=== PATIENT | female | born 1965 | race Caucasian/White ===

== ENCOUNTER → 2019-01-30 13:58 | Outpatient (CLI) | payer OTHER, SELFPAY ==
--- NOTE | 2019-01-30 14:11 | DI.CT.S_ITS ---
PROCEDURE: CT ABDOMEN PELVIS W CON INDICATIONS: Unspecified abdominal pain TECHNIQUE: After the administration of oral and intravenous contrast, 5 mm thick sections acquired from the diaphragms to the symphysis. 5 mm thick coronal and sagittal reformats were performed. For radiation dose reduction, the following was used: automated exposure control, adjustment of mA and/or kV according to patient size. COMPARISON: None. FINDINGS: Image quality: Excellent. ABDOMEN: Lung bases: Heart size is normal. Bilateral breast prostheses. No acute consolidation. Scattered subsegmental atelectasis and/or scarring Solid organs: Mild hepatic steatosis. Presumed multiple cysts seen throughout the left and right lobes the liver although some of these are technically too small to characterize definitively Gallbladder contracted otherwise unremarkable. Biliary system is non-dilated. Pancreas enhances normally. Spleen is normal in size and enhancement. No adrenal nodules. Kidneys are normal in size and enhancement, without hydronephrosis. Peritoneum and bowel: Stomach, small bowel, and colon loops are normal in caliber and wall thickness. No free fluid or air. The appendix is within normal limits. Colonic diverticulosis is seen without evidence of acute complication. Nodes and vessels: Bilateral prominent ovarian veins, in addition to asymmetrically enlarged left parametrial varices. No retroperitoneal or mesenteric adenopathy. Aorta and inferior vena cava are normal in caliber. Miscellaneous: No ventral hernias. PELVIS: Genitourinary: Bladder wall thickness is normal. Miscellaneous: No inguinal hernias or adenopathy. Bones: No suspicious bony lesions. No vertebral body compression fractures. IMPRESSION: No acute intra-abdominal process. Prominence of the ovarian veins bilaterally as well as asymmetrically enlarged left parametrial varices. This appearance can be associated with pelvic congestion syndrome. Hepatic cysts. Dictated by: Mega Lott M.D. on 01/30/2019 at 15:19 Approved by: Mega Lott M.D. on 01/30/2019 at 15:36
== END ==
PROVIDERS: Visit Provider Internal Medicine
DX: R10.9 Unspecified abdominal pain (principal); R19.7 Diarrhea, unspecified; K76.0 Fatty (change of) liver, not elsewhere classified; K57.90 Diverticulosis of intestine, part unspecified, without perforation or abscess without bleeding
CPT/HCPCS: 74177

== ENCOUNTER → 2019-11-30 16:50 | Outpatient (CLI) | payer OTHER, SELFPAY ==
[2019-11-30 18:09] LABS: Add Manual Diff / Slide Review NO; Basophils Absolute Auto 100 /uL (0-100); Basophils Percent Auto 0.5 % (0-2); Eosinophils Absolute Auto 300 /uL (0-450); Eosinophils Percent Auto 2.5 % (2-4); Hematocrit 43.4 % (36-46); Hemoglobin 14.3 g/dL (12.0-16.0); Lymphocytes Absolute Auto 3200 /uL (1100-4500); Lymphocytes Percent Auto 23.3 % (25-40); Mean Corpuscular HGB Conc 32.9 % (30-36); Mean Corpuscular Hemoglobin 30.4 PG (26-34); Mean Corpuscular Volume 92.4 fL (80-100); Monocytes Absolute Auto 1200 /uL (0-900); Monocytes Percent Auto 9.1 % (3-14); Neutrophils Absolute Auto 8900 /uL (1500-7000); Neutrophils Percent Auto 64.6 % (50-75); Platelet Count 350 X10^3/uL (150-400); Red Cell Distribution Width 13.8 % (11.6-14.8); White Blood Cell Count 13.8 X10^3/uL (4.5-11.0)
[2019-11-30 18:25] LABS: Alanine Aminotransferase 20 IU/L (<35); Albumin 4.6 g/dL (3.5-5.0); Albumin Globulin Ratio 1.6 (1.0-2.8); Alkaline Phosphatase 63 U/L (38-126); Aspartate Aminotransferase 23 IU/L (14-36); BUN Creatinine Ratio 27.5 (6-22); Bilirubin Total 0.7 mg/dL (0.2-1.3); Blood Urea Nitrogen 19 mg/dL (7-17); Calcium 10.4 mg/dL (8.4-10.2); Carbon Dioxide 29 mmol/L (22-32); Chloride 105 mmol/L (98-107); Estimated Glomerular Filt Rate > 60.0 mL/min (>60); Globulin 2.9 g/dL (1.7-4.1); Glucose 92 mg/dL (70-100); HEMOLYSIS < 15 (0-50); Sodium 139 mmol/L (137-145); Total Protein 7.5 g/dL (6.3-8.2)
[2019-11-30 18:27] LABS: Potassium 5.5 mmol/L (3.4-5.1)
== END ==
PROVIDERS: Referring Provider Internal Medicine Rheumatology; Visit Provider Internal Medicine Rheumatology
DX: Z51.81 Encounter for therapeutic drug level monitoring (principal); Z15.89 Genetic susceptibility to other disease; M76.60 Achilles tendinitis, unspecified leg; Z79.899 Other long term (current) drug therapy
CPT/HCPCS: 36415; 80053; 85025

== ENCOUNTER → 2020-05-21 10:13 | Outpatient (CLI) | payer OTHER, SELFPAY ==
--- NOTE | 2020-05-21 10:26 | DI.MG.S_ITS ---
Patient Name: RONNA SHARMA date: 1965 Sex: F Attending Physician: Long Indications: Date: 05/21/2020 10:23 At the request of: CALI RAMIREZ Procedure: MM screening mammo implant BI BILATERAL DIGITAL SCREENING MAMMOGRAM 3D/2D WITH CAD WITH AUGMENTATION: 05/21/2020 CLINICAL: Patient presents for routine screening. S/P bilateral augmentation. Family history of breast cancer. Comparison is made to exams dated: 08/09/2017 mammogram, 04/16/2016 mammogram, and 11/17/2013 mammogram - [facility]. There are scattered fibroglandular elements in both breasts. Current study was also evaluated with a Computer Aided Detection (CAD) system. Bilateral breast implants are stable and intact. No significant masses, calcifications, or other findings are seen in either breast. There has been no significant interval change. IMPRESSION: NEGATIVE There is no mammographic evidence of malignancy. A 1 year screening mammogram is recommended. This exam was interpreted at Station ID: [id number]. NOTE: For mammograms, a report in lay terms will be sent to the patient. Approximately 15% of breast malignancies will not be visualized mammographically. In the management of a palpable breast mass, a negative mammogram must not discourage biopsy of a clinically suspicious lesion. Electronically Signed By: Alicia naylor/hudson:05/23/2020 09:02:00 letter sent: Normal Exam Continued Report - Page 2 of 2 Patient Name: RONNA SHARMA date: 1965 Sex: F Attending Physician: Long Indications: Date: 05/21/2020 10:23 At the request of: CALI RAMIREZ Procedure: MM screening mammo implant BI ACR BI-RADS Category 1: Negative 3341F
== END ==
PROVIDERS: PCP Student in an Organized Health Care Education/Training Program; Referring Provider Student in an Organized Health Care Education/Training Program; Visit Provider Student in an Organized Health Care Education/Training Program
DX: Z12.31 Encounter for screening mammogram for malignant neoplasm of breast (principal); Z80.3 Family history of malignant neoplasm of breast; Z98.82 Breast implant status
CPT/HCPCS: 77063; 77067

== ENCOUNTER 2020-07-27 01:08 | Emergency (ER) | payer OTHER, SELFPAY ==
[2020-07-27 01:15] VITALS: BP 141/85; PULSE 71; RESP 17; TEMP 36.4; O2SAT 97; BMI 28.5
--- NOTE | 2020-07-27 01:42 | ED.ABDPAIN ---
HPI - Abdominal Pain General Chief Complaint: Back Pain/Injury Stated Complaint: stomach pain/back pain Time Seen by Provider: 07/27/20 01:37 Source: patient Mode of arrival: Ambulatory Limitations: no limitations History of Present Illness HPI narrative: The patient's parents onset of right-sided abdominal pain earlier today, at home. She has been eating and drinking normally. She has had no fever chills. She developed pain in the right abdomen, then radiated across her abdomen to the left abdomen. Pain is in left side, shooting to the left lower quadrant. She developed nausea, she vomited x1. She has no history of GERD, or gallbladder disease. She has 1 prior kidney stone. She denies dysuria or hematuria. She has no fever or chills. She denies chronic medical problems. No one around her has been ill with similar complaints. Related Data Previous Rx's Medication Instructions Recorded hydrocodone-acetaminophen [Luverne] 1 tab PO Q4-6H PRN #14 tab 07/27/20 ondansetron 4 mg PO Q4H PRN #14 tab 07/27/20 tamsulosin [Flomax] 0.4 mg PO DAILY #7 cap 07/27/20 Allergies Allergy/AdvReac Type Severity Reaction Status Date / Time Penicillins Allergy Hives Verified 07/27/20 02:08 albuterol AdvReac Shakiness Verified 07/27/20 02:08 Review of Systems Review of Systems ROS Unobtainable: All systems reviewed & are unremarkable except as noted in HPI and below Constitutional Constitutional: Denies chills, Denies fever(s), Denies headache(s) and Denies weakness ENT Ears, Nose, Mouth, and Throat: Denies headache(s), Denies neck pain and Denies sore throat Cardiovascular Cardiovascular: Denies chest pain, Denies irregular heart rhythm, Denies lightheadedness, Denies palpitations and Denies dyspnea Respiratory Respiratory: Denies cough, Denies dyspnea and Denies wheezing Gastrointestinal Gastrointestinal: Reports as per HPI Genitourinary Genitourinary: Denies dysuria Genitourinary: Denies dysuria Musculoskeletal Musculoskeletal: Reports back pain and Denies neck pain Integumentary/Breasts Skin/Breast: Denies pruritus and Denies erythema Neurologic Neurologic: Denies confusion, Denies headache(s) and Denies weakness Psychiatric Psychiatric: Denies anxiety, Denies confusion, Denies depression and Denies homicidal ideation Endocrine Endocrine: Denies palpitations Allergic/Immunologic Allergic/Immunologic: Denies wheezing Patient History Medical History (Updated 07/27/20 @ 05:55 by Waqar Edwards MD) No chronic diseases present (Acute) Surgical History (Updated 07/27/20 @ 01:45 by Waqar Edwards MD) No significant past surgical history (Acute) Social History Smoking Status: Never smoker Exam Initial Vital Signs Initial Vital Signs: Vital Signs Temperature 97.6 F 07/27/20 01:15 Pulse Rate 71 07/27/20 01:15 Respiratory Rate 17 07/27/20 01:15 Blood Pressure 141/85 H 07/27/20 01:15 Pulse Oximetry 97 07/27/20 01:15 Const General: cooperative and well developed Nutritional Appearance: well nourished HENHI Head: normocephalic and atraumatic Mouth: oral mucosae normal Eyes Conjunctivae: conjunctivae normal Sclera: sclerae normal Neck Neck: No lymphadenopathy and No JVD Resp Effort & Inspection: normal respiratory effort, able to speak in complete sentences, no respiratory distress and no use of accessory muscles Auscultation: clear to auscultation bilaterally, no rales, no rhonchi and no wheezes Cardio Rate: regular rate Rhythm: regular rhythm Heart Sounds: no rubs GI Inspection: non-distended Palpation: soft Auscultation: normal bowel sounds Back/Spine/Pelvis Back: No CVA tenderness Cervical Spine: cervical ROM normal Other: Palpable tenderness in the left flank. Skin General: no rashes or lesions noted, No jaundice and No petechiae Neuro General: patient alert, patient oriented x3, gait normal and no focal motor deficits Speech: speech normal Extrem General: full ROM, no clubbing, cyanosis or edema, no pedal edema and no calf tenderness Course Course Course Narrative: The patient was initially given Toradol due to a presumed kidney stone. Labs were benign, there is no hematuria. CT was obtained due to ongoing symptoms. A 1.2 mm obstructing stone to the left proximal ureter was discovered. In addition to the initial dose of Toradol, she required 2 doses of Dilaudid, she was given Zofran. She was started on Flomax. Her urine has been screen, the stone is not seen. Although, the patient is feeling much better. She would discharged home on Luverne for pain, as well as Flomax. She is instructed to screening urine. To be instructed follow-up with her doctor if not improving. Orders Ordered: Discontinued Medications Hydrocodone Bitart/Acetaminophen (Vicodin 5/325 Prepack) 1 bottle MISC SEEINSTR ONE Stop: 07/27/20 05:47 Last Admin: 07/27/20 06:09 Dose: 1 bottle Documented by: YAS Hydromorphone HCl (Dilaudid) 1 mg IV NOW ONE Stop: 07/27/20 02:29 Last Admin: 07/27/20 02:36 Dose: 1 mg Documented by: LONNY Hydromorphone HCl (Dilaudid) 1 mg IV NOW ONE Stop: 07/27/20 03:47 Last Admin: 07/27/20 03:54 Dose: 1 mg Documented by: YAS Sodium Chloride (Normal Saline 0.9%) 500 mls @ 1,000 mls/hr IV BOLUS ONE Stop: 07/27/20 02:09 Last Infusion: 07/27/20 02:37 Dose: 0 mls/hr Documented by: Admin: 07/27/20 01:56 Dose: 1,000 mls/hr Documented by: YAS Sodium Chloride (Normal Saline 0.9%) 1,000 mls @ 250 mls/hr IV CONT TAI Last Infusion: 07/27/20 06:16 Dose: 0 mls/hr Documented by: Admin: 07/27/20 04:20 Dose: 250 mls/hr Documented by: YAS Ketorolac Tromethamine (Toradol) 30 mg IV NOW ONE Stop: 07/27/20 01:41 Last Admin: 07/27/20 01:55 Dose: 30 mg Documented by: YAS Ondansetron HCl (Zofran) 4 mg IV NOW ONE Stop: 07/27/20 01:42 Last Admin: 07/27/20 01:55 Dose: 4 mg Documented by: YAS Ondansetron HCl (Zofran) 4 mg IV NOW ONE Stop: 07/27/20 02:31 Last Admin: 07/27/20 02:34 Dose: 4 mg Documented by: LONNY Ondansetron HCl (Zofran Odt Prepack) 1 bottle MISC SEEINSTR ONE Stop: 07/27/20 05:47 Last Admin: 07/27/20 06:09 Dose: 1 bottle Documented by: YAS Tamsulosin HCl (Flomax) 0.4 mg PO NOW ONE Stop: 07/27/20 04:13 Last Admin: 07/27/20 04:20 Dose: 0.4 mg Documented by: YAS Vital Signs Vital signs: Vital Signs - 8 hr 07/27/20 01:15 07/27/20 04:25 Temperature 97.6 F Pulse Rate 71 70 Respiratory Rate 17 23 Blood Pressure 141/85 H 136/63 Pulse Oximetry 97 99 MDM - Abdominal Pain Lab Data Result diagrams: 07/27/20 01:35 07/27/20 01:35 Labs: Lab Results 07/27/20 07/27/20 Range/Units 01:35 01:35 WBC 9.7 (4.5-11.0) X10^3/uL RBC 4.80 (4.0-5.2) X10^6/uL Hgb 14.6 (12.0-16.0) g/dL Hct 44.3 (36-46) % MCV 92.4 (80-100) fL MCH 30.5 (26-34) PG MCHC 33.0 (30-36) % RDW 12.7 (11.6-14.8) % Plt Count 315 (150-400) X10^3/uL Neut % (Auto) 67.2 (50-75) % Lymph % (Auto) 22.4 L (25-40) % [place] % (Auto) 7.4 (3-14) % Eos % (Auto) 2.1 (2-4) % Baso % (Auto) 0.9 (0-2) % Neut # (Auto) 6500 (7095-4703) /uL Lymph # (Auto) 2200 (8927-1148) /uL [place] # (Auto) 700 (0-900) /uL Eos # (Auto) 200 (0-450) /uL Baso # (Auto) 100 (0-100) /uL Sodium 139 (137-145) mmol/L Potassium 4.1 (3.4-5.1) mmol/L Chloride 108 H (98-107) mmol/L Carbon Dioxide 23 (22-32) mmol/L BUN 21 H (7-17) mg/dL Creatinine 0.70 (0.52-1.04) mg/dL Estimated GFR > 60.0 (>60) mL/min BUN/Creatinine Ratio 30.0 H (6-22) Glucose 118 H (70-100) mg/dL Calcium 9.9 (8.4-10.2) mg/dL Total Bilirubin 0.6 (0.2-1.3) mg/dL AST 23 (14-36) IU/L ALT 21 (<35) IU/L Alkaline Phosphatase 67 (38-126) U/L Total Protein 7.9 (6.3-8.2) g/dL Albumin 4.6 (3.5-5.0) g/dL Globulin 3.3 (1.7-4.1) g/dL Albumin/Globulin Ratio 1.4 (1.0-2.8) Lipase 84 (23-300) U/L Point of care testing: Urine Dip Bedside Urine Glucose Negative Bedside Urine Bilirubin - Negative Bedside Urine Ketone - Negative Urine Specific [place] 1.025 Bedside Urine Occult Blood +/- Bedside Urine pH 6.0 Bedside Urine Protein - Negative Bedside Urine Urobilinogen - Negative Bedside Urine Nitrite - Negative Bedside Urine Leukocytes - Negative Esterase Imaging Data KUB CT: Radiologist's Impression: 1.2 mm obstructing stone in the proximal left ureter. Nonobstructing bilateral nephrolithiasis. Discharge Plan Departure Patient Disposition: Home Clinical Impression: Kidney stone on left side Discharge Date/Time: 07/27/20 06:20 Instructions: DI for Kidney Stones Activity Restrictions/Additional Instructions: Flomax 1 tablet daily. You may take Tylenol or Advil as needed for pain. Take Luverne every 4 hours for added pain control. Take Zofran every 4 hours as needed for nausea. Be sure you are drinking plenty of water. Screen your urine. If you do not identify the stone within 3-4 days, follow-up with your doctor. Return here for increasing pain, or fever. Prescriptions: New hydrocodone-acetaminophen [Luverne] 5-325 mg tablet 1 tab PO Q4-6H PRN (Reason: pain) Qty: 14 RF: 0 ondansetron 4 mg tablet,disintegrating 4 mg PO Q4H PRN (Reason: nausea and vomiting) Qty: 14 RF: 0 tamsulosin [Flomax] 0.4 mg capsule 0.4 mg PO DAILY Qty: 7 RF: 0 Referrals: Jesica Alves MD [Primary Care Provider] -
[2020-07-27 01:53] LABS: Add Manual Diff / Slide Review NO; Basophils Absolute Auto 100 /uL (0-100); Basophils Percent Auto 0.9 % (0-2); Eosinophils Absolute Auto 200 /uL (0-450); Eosinophils Percent Auto 2.1 % (2-4); Hematocrit 44.3 % (36-46); Hemoglobin 14.6 g/dL (12.0-16.0); Lymphocytes Absolute Auto 2200 /uL (1100-4500); Lymphocytes Percent Auto 22.4 % (25-40); Mean Corpuscular Hemoglobin 30.5 PG (26-34); Mean Corpuscular Volume 92.4 fL (80-100); Monocytes Absolute Auto 700 /uL (0-900); Monocytes Percent Auto 7.4 % (3-14); Neutrophils Absolute Auto 6500 /uL (1500-7000); Neutrophils Percent Auto 67.2 % (50-75); Platelet Count 315 X10^3/uL (150-400); Red Cell Distribution Width 12.7 % (11.6-14.8); White Blood Cell Count 9.7 X10^3/uL (4.5-11.0)
[2020-07-27] MEDS: KETOROLAC 60 MG/2 ML VIAL 30 MG IV (01:55)
[2020-07-27] MEDS: ONDANSETRON 4 MG/2 ML INJ IV ×2 (01:55→02:34)
[2020-07-27] MEDS: SODIUM CHLORIDE 0.9% 500 ML 1000 ML IV (01:56)
[2020-07-27 02:03] LABS: Alanine Aminotransferase 21 IU/L (<35); Albumin 4.6 g/dL (3.5-5.0); Albumin Globulin Ratio 1.4 (1.0-2.8); Alkaline Phosphatase 67 U/L (38-126); Aspartate Aminotransferase 23 IU/L (14-36); Bilirubin Total 0.6 mg/dL (0.2-1.3); Blood Urea Nitrogen 21 mg/dL (7-17); Calcium 9.9 mg/dL (8.4-10.2); Carbon Dioxide 23 mmol/L (22-32); Chloride 108 mmol/L (98-107); Estimated Glomerular Filt Rate > 60.0 mL/min (>60); Globulin 3.3 g/dL (1.7-4.1); Glucose 118 mg/dL (70-100); HEMOLYSIS 27 (0-50); Lipase 84 U/L (23-300); Potassium 4.1 mmol/L (3.4-5.1); Sodium 139 mmol/L (137-145); Total Protein 7.9 g/dL (6.3-8.2)
--- NOTE | 2020-07-27 02:10 | DI.CT.S_ITS ---
PROCEDURE: CT KIDNEY URETER BLADDER (KUB) INDICATIONS: Left flank pain TECHNIQUE: Noncontrast 5 mm thick sections acquired from the diaphragms to the symphysis. 5 mm thick coronal and sagittal reformats were then performed. For radiation dose reduction, the following was used: automated exposure control, adjustment of mA and/or kV according to patient size. COMPARISON: [facility], CT, CT ABDOMEN PELVIS W CON, 01/30/2019, 14:41. FINDINGS: Image quality: Excellent. Lung bases: Mild right middle lobe and lingular atelectasis. Heart size is normal. Note is made of bilateral breast prosthesis. Urinary system: There is a 5 mm nonobstructing stone in the left renal pelvis. A 2 mm stone is seen in the proximal left ureter. There is mild left hydronephrosis and perinephric stranding. A 2 mm calcification is seen in right kidney. No right hydronephrosis. Both kidneys are normal in size. Bladder wall thickness is normal; no calcified bladder stones. Other solid organs: There are multiple hepatic cysts. Liver is normal in size. Gallbladder is normal . Pancreas is normal in contours. Spleen is normal in size. No adrenal nodules. Peritoneum and bowel: Unenhanced bowel loops demonstrate normal wall thickness and caliber. Normal appendix. There are scattered colonic diverticula. No diverticulitis. No free fluid or air. Nodes and vessels: No retroperitoneal or mesenteric adenopathy by size criteria. Aorta and inferior vena cava are normal in caliber. Abdominal wall: No ventral hernias. Pelvis: Uterus and ovaries are unremarkable. No free-fluid in the cul-de-sac. No inguinal hernias or adenopathy. Bones: No suspicious bony lesions. No vertebral body compression fractures. IMPRESSION: 1. A 2 mm obstructive stone in the proximal left ureter causing mild left hydronephrosis. 2. There are nonobstructive renal calculi bilaterally. 3. Diverticulosis without diverticulitis. No significant discrepancy with the night time nanny radiology preliminary report. Dictated by: Edin Craig M.D. on 07/27/2020 at 7:37 Approved by: Edin Craig M.D. on 07/27/2020 at 7:44
[2020-07-27] MEDS: HYDROMORPHONE 1 MG INJ IV (02:36)
[2020-07-27] MEDS: HYDROMORPHONE 0.5 MG INJ 1 MG IV (03:54)
[2020-07-27] MEDS: TAMSULOSIN 0.4 MG CAPSULE PO (04:20)
[2020-07-27] MEDS: SODIUM CHLORIDE 0.9% 1,000 ML 250 ML IV (04:20)
[2020-07-27 04:25] VITALS: BP 136/63; PULSE 70; RESP 23; O2SAT 99
[2020-07-27] MEDS: HYDROCODONE/ACET 5/325 PREPACK 1 BOTTLE MISC (06:09)
[2020-07-27] MEDS: ONDANSETRON 4 MG ODT PREPACK 1 BOTTLE MISC (06:09)
== END 2020-07-27 06:20 | disposition home or self-care (01) ==
PROVIDERS: Emergency Provider Emergency Medicine; PCP Student in an Organized Health Care Education/Training Program
DX: N20.0 Calculus of kidney (principal); R11.2 Nausea with vomiting, unspecified
CPT/HCPCS: 36415; 74176; 80053; 81003; 83690; 85025; 96361; 96374; 96375; 96376; 99284; J1170; J1885; J2405

== ENCOUNTER 2021-02-11 08:14 | Observation (INO) | payer OTHER, SELFPAY ==
[2021-02-11] VITALS (72 sets, daily range): BP systolic 101–147; BP diastolic 49–86; PULSE 60–102; RESP 10–41; TEMP 36.3–36.7; O2SAT 95–99; BMI 28.5
--- NOTE | 2021-02-11 | DI.ECHO.S_ITS ---
[place] [facility]---------+ [facility] +---------+ : : [address] : : : : [id number] : : : : Phone: [phone] Echocardiogram Report + + :Name: RONNA SHARMA Study Date: 02/12/2021 Height: 71 in : :[facility] ReadingLocation: Weight: 205 lb : : Gender: Female BSA: 2.1 m2 : :: 1965 Age: 56 yrs BP: 143/79 mmHg: :Reason For Study: CHEST PAIN : :Ordering Physician: SARA, : :MICHAEL Bishop Performed By: Frances Whitaker : :Referring: MICHAEL RUIZ : + + Interpretation Summary The left ventricle is normal in size and wall thickness. The ejection fraction is estimated to be 55-60%. No significant change in LVEF from the previous study. The right ventricle is normal in size and function. No significant valvular pathology seen. The IVC is of normal diameter and collapses greater than 50% with a sniff. This suggests a low right atrial pressure of 3 mm Hg. Procedure: A two-dimensional transthoracic echocardiogram with color flow and Doppler was performed. The study quality was technically adequate. Comparison is made with the echocardiogram of 09/26/2017. The patient was in sinus rhythm with heart rates between 62-45 bpm during the exam. Left Ventricle: The left ventricle is normal in size and wall thickness. There is no thrombus. The ejection fraction is estimated to be 55-60%. There is a mid septal hypokinesis unchanged from the previous study. Diastolic parameters suggest a relaxation abnormality of the left ventricle, consistent with probable normal filling pressures. Right Ventricle: The right ventricle is normal in size and function. Atria: The left atrium is moderately dilated. The left atrium has mildly increased in size since the prior echo exam. Right atrial size is normal. There is no Doppler evidence for an interatrial shunt. Mitral Valve: The mitral valve leaflets are slightly calcified. There is trace mitral regurgitation. Aortic Valve: The aortic valve is not well visualized. The aortic valve opens well. There is no aortic valve stenosis. No aortic regurgitation is present. Tricuspid Valve: The tricuspid valve is not well visualized, but is grossly normal. There is trace tricuspid regurgitation. Pulmonary artery pressures cannot be estimated because of the lack of a measurable TR jet velocity. Pulmonic Valve: The pulmonic valve is not well seen, but is grossly normal. There is no pulmonic valvular regurgitation. Great Vessels: The aortic root is normal size. The ascending aorta could not be visualized. The IVC is of normal diameter and collapses greater than 50% with a sniff. This suggests a low right atrial pressure of 3 mm Hg. Pericardium/ Pleura There is no pericardial effusion. There is no pleural effusion. MMode/2D Measurements & Calculations LVIDd: 5.7 cm LVOT diam: 2.0 cm LVIDs: 4.1 cm Ao root diam: 2.6 cm FS: 27.1 % Ao Arch Diam (Prox Trans): 2.9 cm EPSS: 0.84 cm IVSd: 0.56 cm LVPWd: 0.83 cm LV ware. diameter/BSA (cm/m^2): 2.7 LV sys. diameter/BSA (cm/m^2): 1.9 LA A2 area: 27.8 cm2 RA long axis: 5.3 cm LA A4 area: 21.8 cm2 RA area: 19.3 cm2 LA length (vol): 5.7 cm RA vol: 60.0 ml LA vol: 90.1 ml RA : 28.2 ml/m2 LA vol index: 42.3 ml/m2 IVC diam: 1.5 cm RVD1 (basal): 2.9 cm TAPSE: 2.9 cm Doppler Measurements & Calculations Ao V2 max: 182.5 cm/sec LVOT Max Kody: 91.1 cm/sec Ao V2 mean: 120.8 cm/sec LV V1 max P.3 mmHg Ao max P.3 mmHg LV V1 VTI: 20.4 cm Ao mean P.9 mmHg SAIRA(I,D): 1.6 cm2 Ao V2 VTI: 40.5 cm SAIRA(V,D): 1.6 cm2 sev ratio: 0.51 SAIRA indexed to BSA (cm^2/m^2): 0.74 MV E max kody: 74.2 cm/sec PA pr(Accel): 15.6 mmHg MV A max kody: 78.7 cm/sec MV E/A: 0.94 Med Peak E' Kody: 8.8 cm/sec E/E' med: 8.4 Lat Peak E' Kody: 13.4 cm/sec E/E' lat: 5.5 E/e' average: 7.0 MV dec time: 0.23 sec SV(LVOT): 64.2 ml Reading Physician:02:09 PM
--- NOTE | 2021-02-11 08:19 | ED_ITS ---
HPI - Chest Pain General Chief Complaint: Chest Pain Stated Complaint: chest pain Time Seen by Provider: 02/11/21 08:18 Source: patient and family () Mode of arrival: Ambulatory Limitations: no limitations History of Present Illness HPI narrative: This is a 56-year-old female who comes emergency department with complaint of chest/pressure that started yesterday about 10:00 a.m. and has been constant. Patient states that during evening sort of started to radiate to the across her chest initially been just on the left sort of substernal and also being radiate to ear. She has also noted overnight and into this morning that both upper extremities feel tingly she felt some blurriness in her left eye. Quinn jay denies any radiation to her back. She denies any radiation to her abdomen. She denies any nausea or vomiting. She denies any new weakness or difficulty with use of her extremities. Patient denies any pain down her upper extremities. Patient denies fevers, no chills although she felt cold overnight. She states she felt a little bit short of breath going up stairs which she states is atypical but has not appreciated any shortness of breath otherwise. Denies any nausea, no vomiting. No diaphoresis. She denies any urinary symptoms. No black or bloody stools or diarrhea constipation. She is not appreciate any swelling her extremities. Patient felt lightheaded yesterday but denies any syncope. She states she had a heart attack 5 years ago after having persistent fast heartbeat and states she had a cardiac catheterization at that time which was negative which was likely demand ischemia. She did not have any stents placed. Patient states she did take flecainide yesterday. She states she was prescribed this after that event that she had atrial fibrillation. She states she takes it once or twice monthly. She states that she just felt ill but did not appreciate a fast heartbeat when she took it and did not have any improvement. Patient states she takes cardia and Celebrex and no other regular medications. She does not take aspirin or any other anticoagulation. Patient has a prior history of cardiac catheterization without stents, bilateral breast implants, and tonsillectomy. She is allergic to penicillin. No tobacco, she will his alcohol in the weekends and has not had any so far. No illicit. She states family history her dad had some sort of cardiac issues but she is unsure what they are no longer in touch. She denies any other cardiac, p ulmonary or bowel like history in her family. Dr. Cheng is her security nurse. Related Data Home Medications Medication Instructions Recorded Confirmed acyclovir 400 mg PO BID 02/11/21 02/11/21 celecoxib 200 mg PO BID PRN 02/11/21 02/11/21 diltiazem HCl [Cartia XT] 120 mg PO BID 02/11/21 02/11/21 flecainide 50 mg PO DAILY PRN 02/11/21 02/11/21 Allergies Allergy/AdvReac Type Severity Reaction Status Date / Time Penicillins Allergy Hives Verified 07/27/20 02:08 albuterol AdvReac Shakiness Verified 07/27/20 02:08 Review of Systems Review of Systems ROS Unobtainable: All systems reviewed & are unremarkable except as noted in HPI and below Patient History Medical History (Updated 02/11/21 @ 08:40 by Amy Blake DO) Atrial fibrillation No chronic diseases present Surgical History (Updated 02/11/21 @ 08:38 by Amy Blake DO) History of History of cardiac catheterization History of tonsillectomy Hx of breast implants, bilateral No significant past surgical history Social History Smoking Status: Never smoker Smoking Status: Never smoker alcohol intake frequency: a few times a week Substance Use Type: does not use Exam Narrative Exam Narrative: GENERAL: Alert and oriented x three, well-nourished female in mild distress. HEENT: Head normocephalic, atraumatic, EOMI, pupils reactive, face symmetric, moist mucous membranes, no facial droop. NECK: Supple, full range of motion CARDIOVASCULAR: Regular rate and rhythm without murmurs, rubs or gallops. No JVD. Patient chest pain is reproducible on exam. RESPIRATORY: Breath sounds equal bilaterally, no wheezes rales or rhonchi. ABDOMEN: Soft, nontender. Normoactive bowel sounds all 4 quadrants. No guarding or rebound, rigidity, no mass, no bruit or abdominal pulsatile mass. : No CVA tenderness EXTREMITIES: Normal range of motion, no clubbing or edema. 5/5 muscle strength and equal pipelaying fitter bilaterally. Normal sensation to light touch. Neurovascularly intact. 2+ radial pulses bilaterally. NEUROLOGICAL: Cranial nerves II through XII grossly intact. Moving all extremities SKIN: Warm, dry, no petechiae, no rashes or lesions. Initial Vital Signs Initial Vital Signs: Vital Signs Temperature 97.3 F L 02/11/21 08:23 Pulse Rate 68 02/11/21 08:23 Respiratory Rate 20 02/11/21 08:23 Blood Pressure 129/72 02/11/21 08:23 Pulse Oximetry 97 02/11/21 08:23 Scores HEART Score Heart Score history: Moderately Suspicious Heart Score EKG: Non-Specific repolarization disturbance Heart Score Age: 45-64 years old Heart Score risk factors: 1-2 risk factors Heart Score troponin: < or = to normal limit Heart Score Total: 4 Course Orders Ordered: ED Orders 02/11/21 09:20 COVID19 - ADMIT (WASTE WATER OR WATER [employer]ANT OPERATOR swab/PCR) Stat 02/11/21 09:23 Complete Blood Count AUTO DIFF Stat Comprehensive Metabolic Panel Stat D Dimer Stat Lipase Stat NT-proBNP (BNP-Adult 18+) Stat Partial Thromboplastin Time Stat Prothrombin Time INR Stat Troponin & CK Cardiac Panel Stat 02/11/21 10:10 CT angio head and neck Stat 02/11/21 11:58 Trop I [Troponin I] Stat 02/11/21 12:09 EKG-12 Lead Stat Acyclovir (Acyclovir 400 Mg Tablet) 400 mg PO BID [facility] Aspirin (Aspirin Ec 81 Mg Tablet) 81 mg PO DAILY [facility] Diltiazem HCl (Diltiazem Cd 120 Mg Cap) 120 mg PO BID [facility] Enoxaparin Sodium (Enoxaparin 40 Mg/0.4 Ml Syringe) 40 mg SUBCUT DAILY [facility] Flecainide Acetate (Flecainide 100 Mg Tablet) 50 mg PO DAILY PRN PRN Reason: afib rvr Sodium Chloride (Normal Saline 0.9%) 1,000 mls @ 150 mls/hr IV CONT TAI Last Infusion: 02/11/21 16:39 Dose: 0 mls/hr Documented by: Infusion: 02/11/21 13:58 Dose: 0 mls/hr Documented by: Admin: 02/11/21 09:09 Dose: 150 mls/hr Documented by: DONAL Morphine Sulfate (Morphine 2 Mg/Ml Inj) 2 mg IV Q5MIN PRN PRN Reason: Chest Pain Naloxone HCl (Naloxone 0.4 Mg/Ml Vial) 0.2 mg IV Q2MIN PRN PRN Reason: Opiate Reversal Nitroglycerin (Nitroglycerin 0.4 Mg Sl Tab) 0.4 mg SL [id number] PRN PRN Reason: chest pain Last Admin: 02/11/21 09:10 Dose: 0.4 mg Documented by: Admin: 02/11/21 09:05 Dose: 0.4 mg Documented by: DONAL Nitroglycerin (Nitroglycerin 0.4 Mg Sl Tab) 0.4 mg SL [id number] PRN PRN Reason: Chest Pain Ondansetron HCl (Ondansetron 4 Mg Odt) 4 mg PO Q8HR PRN PRN Reason: Nausea And Vomiting Discontinued Medications Aspirin (Aspirin 81 Mg Chew Tab) 324 mg PO NOW ONE Stop: 02/11/21 08:32 Last Admin: 02/11/21 09:04 Dose: 324 mg Documented by: DONAL Nitroglycerin (Nitroglycerin Oint 1 Inch/Gm Oint...G.) 1 inch TOP NOW ONE Stop: 02/11/21 09:36 Last Admin: 02/11/21 09:38 Dose: 1 inch Documented by: DONAL Nitroglycerin (Nitroglycerin Oint 1 Inch/Gm Oint...G.) 1.5 inch TOP NOW ONE Stop: 02/11/21 17:01 Last Admin: 02/11/21 17:21 Dose: 1.5 inch Documented by: [facility] Reevaluation(s) Reevaluation #1: Patient had improvement with nitro sublingual x2 which then returned. Nitropaste was placed with improvement. Patient was awaiting CT angiography secondary to numbness in her upper extremities as well as some tingling in her face and complaint of blurred vision in eye. Time: 10:12 Consultations Consultation #1: Spoke with Dr. Estrada. Recommend serial enzymes, echo tomorrow and stress testing on Saturday. Time: 14:33 Consultation #2: Dr. Morel, accepts for observation. Dr. Morel saw and dominique luated patient in department. Patient does have somewhat atypical symptoms reviewed Dr. Estrada's recommendations. Time: 14:39 Vital Signs Vital signs: Vital Signs - 8 hr 02/11/21 10:00 02/11/21 10:30 02/11/21 11:00 Pulse Rate 60 61 63 Respiratory Rate 15 26 H 23 Blood Pressure Pulse Oximetry 96 97 97 02/11/21 11:30 02/11/21 11:48 02/11/21 11:50 Pulse Rate 68 62 63 Respiratory Rate 22 22 22 Blood Pressure 131/71 121/71 Pulse Oximetry 97 97 98 02/11/21 11:55 02/11/21 12:00 02/11/21 12:05 Pulse Rate 64 66 61 Respiratory Rate 22 21 21 Blood Pressure 112/69 116/73 113/72 Pulse Oximetry 98 96 96 02/11/21 12:10 02/11/21 12:15 02/11/21 12:31 Pulse Rate 62 64 66 Respiratory Rate 37 H 27 H 22 Blood Pressure 114/69 109/66 Pulse Oximetry 97 97 98 02/11/21 12:33 02/11/21 12:35 02/11/21 12:41 Pulse Rate 60 62 61 Respiratory Rate 12 34 H 18 Blood Pressure 121/66 114/67 147/65 H Pulse Oximetry 02/11/21 12:46 02/11/21 12:50 02/11/21 12:56 Pulse Rate 65 62 63 Respiratory Rate 26 H 17 17 Blood Pressure 108/63 107/76 112/64 Pulse Oximetry 02/11/21 13:00 02/11/21 13:05 02/11/21 13:10 Pulse Rate 62 69 62 Respiratory Rate 21 21 14 Blood Pressure 113/66 110/64 114/62 Pulse Oximetry 02/11/21 13:15 02/11/21 13:21 02/11/21 13:25 Pulse Rate 62 65 66 Respiratory Rate 10 L 22 22 Blood Pressure 113/63 101/49 L 115/56 L Pulse Oximetry 02/11/21 13:30 02/11/21 13:35 02/11/21 13:40 Pulse Rate 63 63 64 Respiratory Rate 22 23 20 Blood Pressure 117/79 113/74 108/71 Pulse Oximetry 02/11/21 13:45 02/11/21 13:50 02/11/21 13:55 Pulse Rate 62 61 64 Respiratory Rate 22 25 H 17 Blood Pressure 108/70 127/69 114/68 Pulse Oximetry 02/11/21 14:00 02/11/21 14:05 02/11/21 14:10 Pulse Rate 62 63 102 H Respiratory Rate 24 27 H 37 H Blood Pressure 123/75 112/60 106/61 Pulse Oximetry 02/11/21 14:15 02/11/21 14:20 02/11/21 14:25 Pulse Rate 62 69 66 Respiratory Rate 23 36 H 31 H Blood Pressure 110/68 114/75 119/67 Pulse Oximetry 02/11/21 14:30 02/11/21 14:35 02/11/21 14:40 Pulse Rate 62 64 63 Respiratory Rate 21 31 H 19 Blood Pressure 116/67 116/69 121/70 Pulse Oximetry 02/11/21 14:45 02/11/21 14:50 02/11/21 14:55 Pulse Rate 68 72 66 Respiratory Rate 31 H 38 H 21 Blood Pressure 128/75 130/73 119/63 Pulse Oximetry 02/11/21 15:00 02/11/21 15:05 Pulse Rate 63 66 Respiratory Rate 18 39 H Blood Pressure 117/65 126/74 Pulse Oximetry MDM - Chest Pain Lab Data Attestation: I reviewed the patient's lab results. Result diagrams: 02/11/21 09:23 02/11/21 09:23 Labs: Lab Results 02/11/21 02/11/21 02/11/21 Range/Units 09:20 09:23 09:23 WBC 5.6 (4.5-11.0) X10^3/uL RBC 4.75 (4.0-5.2) X10^6/uL Hgb 14.3 (12.0-16.0) g/dL Hct 43.8 (36-46) % MCV 92.2 (80-100) fL MCH 30.0 (26-34) PG MCHC 32.6 (30-36) % RDW 13.4 (11.6-14.8) % Plt Count 283 (150-400) X10^3/uL Neut % (Auto) 50.1 (50-75) % Lymph % (Auto) 37.1 (25-40) % [place] % (Auto) 8.7 (3-14) % Eos % (Auto) 3.1 (2-4) % Baso % (Auto) 1.0 (0-2) % Neut # (Auto) 2800 (8606-0059) /uL Lymph # (Auto) 2100 (3211-8202) /uL [place] # (Auto) 500 (0-900) /uL Eos # (Auto) 200 (0-450) /uL Baso # (Auto) 100 (0-100) /uL PT 11.6 (10.1-12.7) SECONDS INR 1.0 (0.9-1.3) APTT 32 (26.4-36.2) SECONDS D-Dimer < 200 (<230) ng/mL Sodium (137-145) mmol/L Potassium (3.4-5.1) mmol/L Chloride (98-107) mmol/L Carbon Dioxide (22-32) mmol/L BUN (7-17) mg/dL Creatinine (0.52-1.04) mg/dL Estimated GFR (>60) mL/min BUN/Creatinine Ratio (6-22) Glucose (70-100) mg/dL Calcium (8.4-10.2) mg/dL Total Bilirubin (0.2-1.3) mg/dL AST (14-36) IU/L ALT (<35) IU/L Alkaline Phosphatase (38-126) U/L Total Creatine Kinase (30-135) U/L CK-MB (CK-2) CK-MB (CK-2) Rel Index Troponin I (0.01-0.034) ng/mL NT-Pro-B Natriuret Pep (<125) pg/mL Total Protein (6.3-8.2) g/dL Albumin (3.5-5.0) g/dL Globulin (1.7-4.1) g/dL Albumin/Globulin Ratio (1.0-2.8) Lipase (23-300) U/L SARS-CoV-2 (PCR) Negative (Negative) 02/11/21 02/11/21 Range/Units 09:23 11:58 WBC (4.5-11.0) X10^3/uL RBC (4.0-5.2) X10^6/uL Hgb (12.0-16.0) g/dL Hct (36-46) % MCV (80-100) fL MCH (26-34) PG MCHC (30-36) % RDW (11.6-14.8) % Plt Count (150-400) X10^3/uL Neut % (Auto) (50-75) % Lymph % (Auto) (25-40) % [place] % (Auto) (3-14) % Eos % (Auto) (2-4) % Baso % (Auto) (0-2) % Neut # (Auto) (4715-6044) /uL Lymph # (Auto) (7213-5625) /uL [place] # (Auto) (0-900) /uL Eos # (Auto) (0-450) /uL Baso # (Auto) (0-100) /uL PT (10.1-12.7) SECONDS INR (0.9-1.3) APTT (26.4-36.2) SECONDS D-Dimer (<230) ng/mL Sodium 140 (137-145) mmol/L Potassium 4.5 (3.4-5.1) mmol/L Chloride 108 H (98-107) mmol/L Carbon Dioxide 25 (22-32) mmol/L BUN 15 (7-17) mg/dL Creatinine 0.60 (0.52-1.04) mg/dL Estimated GFR > 60.0 (>60) mL/min BUN/Creatinine Ratio 25.0 H (6-22) Glucose 110 H (70-100) mg/dL Calcium 9.3 (8.4-10.2) mg/dL Total Bilirubin 0.5 (0.2-1.3) mg/dL AST 26 (14-36) IU/L ALT 22 (<35) IU/L Alkaline Phosphatase 70 (38-126) U/L Total Creatine Kinase 88 (30-135) U/L CK-MB (CK-2) TNP CK-MB (CK-2) Rel Index TNP Troponin I < 0.012 < 0.012 (0.01-0.034) ng/mL NT-Pro-B Natriuret Pep 42 (<125) pg/mL Total Protein 7.0 (6.3-8.2) g/dL Albumin 4.2 (3.5-5.0) g/dL Globulin 2.8 (1.7-4.1) g/dL Albumin/Globulin Ratio 1.5 (1.0-2.8) Lipase 66 (23-300) U/L SARS-CoV-2 (PCR) (Negative) Imaging Data Chest x-ray: Radiologist's Impression: [address] [id number] ReportSigned Patient: Mary Jane Zazueta RMR#: [id number]: 1965Acct:[id number]/Sex: 56 / FDate of Service: 02/11/21Loc: EDAccession Number: [id number] Procedure: XR chest 1V Ordering Provider: Amy Blaek D.O. PROCEDURE: XR CHEST 1V INDICATIONS: chest pain, tingling extremities TECHNIQUE: One view of the chest was acquired. COMPARISON: [facility], CT, CT ANGIO CHEST PE, 09/27/2017, 11:43. [facility], CR, XR CHEST 2 VIEWS, 11/16/2018, 17:30. FINDINGS: Surgical changes and devices: None. Lungs and pleura: Lungs are clear. No pleural effusions or pneumothorax. Mediastinum: The cardiac contours are within normal limits. The aorta demonstrates calcification and tortuosity, which is similar to the prior. Bones and chest wall: No suspicious bony lesions. Degenerative changes are seen, particularly involving the left acromioclavicular joint. Overlying soft tissues appear unremarkable. IMPRESSION: Portable chest study within normal limits for age. Dictated by: Michael Hinson M.D. on 02/11/2021 at 7:58 Approved by: Michael Hinson M.D. on 02/11/2021 at 8:00 CT scan - chest: Radiologist's Impression: [address] [id number] Scan ReportSigned Patient: Mary Jane Zazueta RMR#: [id number]: 1965Acct:[id number]/Sex: 56 / FDate of Service: 02/11/21Loc: EDAccession Number: [id number] Procedure: CT angio head and neck Ordering Provider: Amy Blake D.O. PROCEDURE: CT ANGIO HEAD AND NECK INDICATIONS: chest pain with radiation to neck TECHNIQUE: Pre-contrast 4.5 mm thick sections acquired from the foramen magnum to the vertex. After the administration of intravenous contrast, 1 mm thick sections acquired from the aortic arch through the [place] of Curz. Post-contrast 4.5 mm thick sections then re- acquired from the foramen magnum to the vertex. 3-dimensional avkklmv-obgrpwndj-qwlcmfxyer (MIP) and/or volume rendering reformats were acquired of the central intracranial vasculature and neck separately. COMPARISON: None. FINDINGS: Image quality: Excellent. BRAIN: CSF spaces: Ventricles are normal in size and shape. Basal cisterns are patent . No extra-axial fluid collections. Brain: No midline shift. No intracranial bleeds or masses. Murdock-white matter interface appears intact. Skull and face: Calvarium and facial bones appear intact, without suspicious lesions. Orbits appear normal. Sinuses: Sinuses and mastoids are clear. HEAD CT ANGIOGRAPHY: Anterior circulation: Intracranial internal carotid arteries are normal in size and flow. The flow within the paired anterior cerebral arteries is normal and symmetric. The flow within the middle cerebral arteries is normal and symmetric. The anterior communicating artery is seen. No aneurysms are seen. Posterior circulation: Visualized portions of the vertebral arteries demonstrate normal caliber, and join to form a normal appearing basilar artery. Flow within the posterior cerebral arteries is normal and symmetric. No aneurysms are seen. NECK CT ANGIOGRAPHY: Carotid system: The great vessels demonstrate a conventional anatomy as they arise from the aortic arch. The visualized aortic arch is within normal limits, without findings of dissection or aneurysm. The origins of the common carotid arteries appear patent. The common carotid arteries demonstrate normal caliber and courses. The bifurcation regions are both widely patent. The internal carotid arteries demonstrate normal calibers and courses. Posterior circulation: The origins of the vertebral arteries both appear widely patent. Incidental note is made of a direct origin of the left vertebral artery from the aortic arch. The more superior extracranial portions of both vertebral arteries also demonstrate normal courses and calibers. They join to form a normal appearing basilar artery. Soft tissues: Visualized neck soft tissues demonstrate no suspicious abnormali ties. There is partial visualization of a right breast implant. Bones: No suspicious bony lesions. Visualized cervical spine appears normally aligned. Cervical spine degenerative changes are seen throughout, which are overall worst at C5-C6. IMPRESSION: No acute intracranial process is seen. No significant intracranial arterial abnormality is seen. Within the arteries of the neck, no hemodynamically significant stenosis can be seen. No findings of dissection can be seen. The visualized aortic arch is within normal limits. Incidental note is made of: Direct origin of the left vertebral artery from the aortic arch. Any quantitative measurements of stenosis were performed using NASCET criteria. Dictated by: Michael Hinson M.D. on 02/11/2021 at 11:55 Approved by: Michael Hinson M.D. on 02/11/2021 at 11:58 ECG Data Attestation: I personally reviewed and interpreted this ECG as follows: Prior ECG tracings: not available for review Interpretation: Sinus rhythm rate of 67 NE 172 QRS of 98 QTC 443. For patient is Q-wave in lead 3. No ST elevation. Nonspecific change. No priors for comparison. EKG 2. Shows sinus rhythm rate of 67 NE 172 QRS of [address] No acute ST elevation appreciated. Nonspecific change with MDM Narrative Medical decision making narrative: This is a 56-year-old comes emergency department with somewhat atypical chest pain and a history of atrial fibrillation with intermittent flecainide use. Some of her story is classical with substernal pain a little bit more on the left radiates to the neck and ear as was shoulders. She states she also developed some tingling in both upper extremities as well as her face and cheek. Patient did not have any neurologic changes appreciated on exam. Her EKG does show some Q-waves but no acute ischemic or dynamic changes. Patient's troponin was negative at almost 24 hours out but was repeated with repeat EKG with no acute changes as she had symptomatic symptoms. She did have improvement of her symptoms with nitro sublingual which resolved after 2 and then redeveloped chest pain and was given nitropaste. Patient's chest pain was also reproducible on physical exam spe cific to the left sternal border. Patient had CT angiography ordered with her atypical symptoms to rule out dissection or aneurysm which was negative. Patient's case was discussed with cardiology who recommends observation serial troponins, echo tomorrow and stress testing on Saturday as we do not have it available here. Discussed with patient's primary care service who kindly accepts. Discharge Plan Departure Patient Disposition: Admitted as Observation Clinical Impression: Atypical chest pain Admit Date/Time: 02/11/21 15:09 Admit Provider: Robert Morel
--- NOTE | 2021-02-11 08:31 | DI.RAD.S_ITS ---
PROCEDURE: XR CHEST 1V INDICATIONS: chest pain, tingling extremities TECHNIQUE: One view of the chest was acquired. COMPARISON: [facility], CT, CT ANGIO CHEST PE, 09/27/2017, 11:43. [facility], CR, XR CHEST 2 VIEWS, 11/16/2018, 17:30. FINDINGS: Surgical changes and devices: None. Lungs and pleura: Lungs are clear. No pleural effusions or pneumothorax. Mediastinum: The cardiac contours are within normal limits. The aorta demonstrates calcification and tortuosity, which is similar to the prior. Bones and chest wall: No suspicious bony lesions. Degenerative changes are seen, particularly involving the left acromioclavicular joint. Overlying soft tissues appear unremarkable. IMPRESSION: Portable chest study within normal limits for age. Dictated by: Michael Hinson M.D. on 02/11/2021 at 7:58 Approved by: Michael Hinson M.D. on 02/11/2021 at 8:00
[2021-02-11] MEDS: ASPIRIN 81 MG CHEW TAB 324 MG PO (09:04)
[2021-02-11] MEDS: NITROGLYCERIN 0.4 MG SL TAB SL ×2 (09:05→09:10)
[2021-02-11] MEDS: SODIUM CHLORIDE 0.9% 1,000 ML 150 ML IV (09:09)
--- NOTE | 2021-02-11 09:11 | PC.NURSE ---
after nitro SL x 1 patient reports reduction of chest pressure from 4/10 to a 2/10. Provider aware, second nitro given.
--- NOTE | 2021-02-11 09:15 | PC.NURSE ---
second nitro resolved chest pain/pressure. Provider notified.
[2021-02-11 09:32] LABS: Add Manual Diff / Slide Review NO; Basophils Absolute Auto 100 /uL (0-100); Eosinophils Absolute Auto 200 /uL (0-450); Eosinophils Percent Auto 3.1 % (2-4); Hematocrit 43.8 % (36-46); Hemoglobin 14.3 g/dL (12.0-16.0); Lymphocytes Absolute Auto 2100 /uL (1100-4500); Lymphocytes Percent Auto 37.1 % (25-40); Mean Corpuscular HGB Conc 32.6 % (30-36); Mean Corpuscular Volume 92.2 fL (80-100); Monocytes Absolute Auto 500 /uL (0-900); Monocytes Percent Auto 8.7 % (3-14); Neutrophils Absolute Auto 2800 /uL (1500-7000); Neutrophils Percent Auto 50.1 % (50-75); Platelet Count 283 X10^3/uL (150-400); Red Blood Cell Count 4.75 X10^6/uL (4.0-5.2); Red Cell Distribution Width 13.4 % (11.6-14.8); White Blood Cell Count 5.6 X10^3/uL (4.5-11.0)
[2021-02-11 09:38] LABS: Prothrombin Time 11.6 SECONDS (10.1-12.7)
[2021-02-11] MEDS: NITROGLYCERIN OINT 1 INCH/GM OINT...G. TOP (09:38)
[2021-02-11 09:41] LABS: PTT Partial Thromboplastin Tim 32 SECONDS (26.4-36.2)
[2021-02-11 09:42] LABS: Alanine Aminotransferase 22 IU/L (<35); Albumin 4.2 g/dL (3.5-5.0); Albumin Globulin Ratio 1.5 (1.0-2.8); Alkaline Phosphatase 70 U/L (38-126); Aspartate Aminotransferase 26 IU/L (14-36); Bilirubin Total 0.5 mg/dL (0.2-1.3); Blood Urea Nitrogen 15 mg/dL (7-17); Calcium 9.3 mg/dL (8.4-10.2); Carbon Dioxide 25 mmol/L (22-32); Chloride 108 mmol/L (98-107); Creatine Kinase 88 U/L (30-135); Estimated Glomerular Filt Rate > 60.0 mL/min (>60); Globulin 2.8 g/dL (1.7-4.1); Glucose 110 mg/dL (70-100); HEMOLYSIS < 15 (0-50); Lipase 66 U/L (23-300); Potassium 4.5 mmol/L (3.4-5.1); Sodium 140 mmol/L (137-145)
[2021-02-11 09:45] LABS: D Dimer < 200 ng/mL (<230)
[2021-02-11 09:54] LABS: NT-proBNP (BNP-Adult 18+) 42 pg/mL (<125); Troponin I < 0.012 ng/mL (0.01-0.034)
--- NOTE | 2021-02-11 10:10 | DI.CT.S_ITS ---
PROCEDURE: CT ANGIO HEAD AND NECK INDICATIONS: chest pain with radiation to neck TECHNIQUE: Pre-contrast 4.5 mm thick sections acquired from the foramen magnum to the vertex. After the administration of intravenous contrast, 1 mm thick sections acquired from the aortic arch through the [place]. Post-contrast 4.5 mm thick sections then re-acquired from the foramen magnum to the vertex. 3-dimensional cfzjtez-rwllwntyw-zktoyumjke (MIP) and/or volume rendering reformats were acquired of the central intracranial vasculature and neck separately. COMPARISON: None. FINDINGS: Image quality: Excellent. BRAIN: CSF spaces: Ventricles are normal in size and shape. Basal cisterns are patent. No extra-axial fluid collections. Brain: No midline shift. No intracranial bleeds or masses. [place]-white matter interface appears intact. Skull and face: Calvarium and facial bones appear intact, without suspicious lesions. Orbits appear normal. Sinuses: Sinuses and mastoids are clear. HEAD CT ANGIOGRAPHY: Anterior circulation: Intracranial internal carotid arteries are normal in size and flow. The flow within the paired anterior cerebral arteries is normal and symmetric. The flow within the middle cerebral arteries is normal and symmetric. The anterior communicating artery is seen. No aneurysms are seen. Posterior circulation: Visualized portions of the vertebral arteries demonstrate normal caliber, and join to form a normal appearing basilar artery. Flow within the posterior cerebral arteries is normal and symmetric. No aneurysms are seen. NECK CT ANGIOGRAPHY: Carotid system: The great vessels demonstrate a conventional anatomy as they arise from the aortic arch. The visualized aortic arch is within normal limits, without findings of dissection or aneurysm. The origins of the common carotid arteries appear patent. The common carotid arteries demonstrate normal caliber and courses. The bifurcation regions are both widely patent. The internal carotid arteries demonstrate normal calibers and courses. Posterior circulation: The origins of the vertebral arteries both appear widely patent. Incidental note is made of a direct origin of the left vertebral artery from the aortic arch. The more superior extracranial portions of both vertebral arteries also demonstrate normal courses and calibers. They join to form a normal appearing basilar artery. Soft tissues: Visualized neck soft tissues demonstrate no suspicious abnormalities. There is partial visualization of a right breast implant. Bones: No suspicious bony lesions. Visualized cervical spine appears normally aligned. Cervical spine degenerative changes are seen throughout, which are overall worst at C5-C6. IMPRESSION: No acute intracranial process is seen. No significant intracranial arterial abnormality is seen. Within the arteries of the neck, no hemodynamically significant stenosis can be seen. No findings of dissection can be seen. The visualized aortic arch is within normal limits. Incidental note is made of: Direct origin of the left vertebral artery from the aortic arch. Any quantitative measurements of stenosis were performed using NASCET criteria. Dictated by: Michael Hinson M.D. on 02/11/2021 at 11:55 Approved by: Michael Hinson M.D. on 02/11/2021 at 11:58
[2021-02-11 10:15] LABS: COVID19 - ADMIT (NP swab/PCR) Negative (Negative)
[2021-02-11 12:33] LABS: Troponin I < 0.012 ng/mL (0.01-0.034)
--- NOTE | 2021-02-11 15:29 | PM.HP.1 ---
History of Present Illness History of Present Illness Date Patient Seen: 02/11/21 Time Patient Seen: 15:10 Date of Onset of Symptoms: 02/10/21 Chief complaint: chest pain Narrative: chief complaint: chest pain Pt presents via ED for sudden onset crushing sternal chest pain yesterday radiating up to her L ear. She reports yesterday was pretty regular except for she did notice she was peeing a lot more than usual and she felt lightheaded at her passport photo but did not fall. Chest pain occurred yesterday afternoon while she was just sitting around at home. She is a cardiology pt of Dr Cheng 2\2 hx of rate-controlled afib not on anticoagulation. She takes a daily diltiazem and has a prn flecainide which she uses perhaps monthly but which had no effect on her chest pain yesterday. Initial workup here including troponin and CTA unrevealing however pt's chest pain responds beautifully to nitro tabs and paste. Pt reports she is not really under any huge stress lately, she got last week in a small ceremony, Cezar ([phone]) at bedside. Appetite is good, slept ok last night, peeing normal amount today she thinks. Sees Dr. Cheng who per ED recommends serial trops and echo then stress test as outpt if all wnl. Apart from HSV and afib she is in generally good health, reports menopause for the last five years. Patient History Medical History (Updated 02/11/21 @ 08:40 by Amy Blake DO) Atrial fibrillation No chronic diseases present Surgical History (Updated 02/11/21 @ 08:38 by Amy Blake DO) History of History of cardiac catheterization History of tonsillectomy Hx of breast implants, bilateral No significant past surgical history Family & Social History Safety & Behavioral: Feels Safe in Current Yes Environment Been Physically Hurt or No Threatened By a Person Tobacco & Substance use: Smoking Status Never smoker alcohol intake frequency a few times a week Substance Use Type does not use Meds Home Medications and Allergies Home Medications Medication Instructions Recorded Confirmed Type acyclovir 400 mg PO BID 02/11/21 02/11/21 History celecoxib 200 mg PO BID PRN 02/11/21 02/11/21 History diltiazem HCl [Cartia XT] 120 mg PO BID 02/11/21 02/11/21 History flecainide 50 mg PO DAILY PRN 02/11/21 02/11/21 History Allergies Allergy/AdvReac Type Severity Reaction Status Date / Time Penicillins Allergy Hives Verified 07/27/20 02:08 albuterol AdvReac Shakiness Verified 07/27/20 02:08 Review of Systems Review of Systems ROS: Yes All systems reviewed with the patient and are negative except as otherwise documented Exam Vital Signs (past 8 hours): - 02/11/21 08:23 02/11/21 08:28 02/11/21 08:30 Temperature 97.3 F L Pulse Rate 68 67 68 Respiratory Rate 20 17 20 Blood Pressure 129/72 126/75 Pulse Oximetry 97 98 99 02/11/21 08:58 02/11/21 09:02 02/11/21 09:03 Temperature Pulse Rate 63 64 64 Respiratory Rate 17 Blood Pressure 124/63 134/64 Pulse Oximetry 98 99 99 02/11/21 09:05 02/11/21 09:10 02/11/21 09:14 Temperature Pulse Rate 60 69 72 Respiratory Rate 28 H 28 H Blood Pressure 134/64 124/72 126/60 Pulse Oximetry 97 95 02/11/21 09:15 02/11/21 09:30 02/11/21 09:35 Temperature Pulse Rate 70 60 60 Respiratory Rate 17 16 Blood Pressure 126/60 135/86 Pulse Oximetry 98 97 02/11/21 09:38 02/11/21 10:00 02/11/21 10:30 Temperature Pulse Rate 65 60 61 Respiratory Rate 15 26 H Blood Pressure 135/86 Pulse Oximetry 96 97 02/11/21 11:00 02/11/21 11:30 02/11/21 11:48 Temperature Pulse Rate 63 68 62 Respiratory Rate 23 22 22 Blood Pressure 131/71 Pulse Oximetry 97 97 97 02/11/21 11:50 02/11/21 11:55 02/11/21 12:00 Temperature Pulse Rate 63 64 66 Respiratory Rate 21 Blood Pressure 121/71 112/69 116/73 Pulse Oximetry 98 98 96 02/11/21 12:05 02/11/21 12:10 02/11/21 12:15 Temperature Pulse Rate 61 62 64 Respiratory Rate 21 37 H 27 H Blood Pressure 113/72 114/69 109/66 Pulse Oximetry 96 97 97 02/11/21 12:31 02/11/21 12:33 02/11/21 12:35 Temperature Pulse Rate 66 60 62 Respiratory Rate 22 12 34 H Blood Pressure 121/66 114/67 Pulse Oximetry 98 02/11/21 12:41 02/11/21 12:46 02/11/21 12:50 Temperature Pulse Rate 61 65 62 Respiratory Rate 18 26 H 17 Blood Pressure 147/65 H 108/63 107/76 Pulse Oximetry 02/11/21 12:56 02/11/21 13:00 02/11/21 13:05 Temperature Pulse Rate 63 62 69 Respiratory Rate 17 21 21 Blood Pressure 112/64 113/66 110/64 Pulse Oximetry 02/11/21 13:10 02/11/21 13:15 02/11/21 13:21 Temperature Pulse Rate 62 62 65 Respiratory Rate 14 10 L 22 Blood Pressure 114/62 113/63 101/49 L Pulse Oximetry 02/11/21 13:25 02/11/21 13:30 02/11/21 13:35 Temperature Pulse Rate 66 63 63 Respiratory Rate 22 22 23 Blood Pressure 115/56 L 117/79 113/74 Pulse Oximetry 02/11/21 13:40 02/11/21 13:45 02/11/21 13:50 Temperature Pulse Rate 64 62 61 Respiratory Rate 20 22 25 H Blood Pressure 108/71 108/70 127/69 Pulse Oximetry 02/11/21 13:55 02/11/21 14:00 02/11/21 14:05 Temperature Pulse Rate 64 62 63 Respiratory Rate 17 24 27 H Blood Pressure 114/68 123/75 112/60 Pulse Oximetry 02/11/21 14:10 02/11/21 14:15 02/11/21 14:20 Temperature Pulse Rate 102 H 62 69 Respiratory Rate 37 H 23 36 H Blood Pressure 106/61 110/68 114/75 Pulse Oximetry 02/11/21 14:25 02/11/21 14:30 02/11/21 14:35 Temperature Pulse Rate 66 62 64 Respiratory Rate 31 H 21 31 H Blood Pressure 119/67 116/67 116/69 Pulse Oximetry 02/11/21 14:40 02/11/21 14:45 02/11/21 14:50 Temperature Pulse Rate 63 68 72 Respiratory Rate 19 31 H 38 H Blood Pressure 121/70 128/75 130/73 Pulse Oximetry 02/11/21 14:55 02/11/21 15:00 02/11/21 15:05 Temperature Pulse Rate 66 63 66 Respiratory Rate 21 18 39 H Blood Pressure 119/63 117/65 126/74 Pulse Oximetry 02/11/21 15:10 02/11/21 15:15 02/11/21 15:21 Temperature Pulse Rate 64 64 65 Respiratory Rate 41 H 40 H 26 H Blood Pressure 121/71 127/69 131/74 Pulse Oximetry Oxygen Delivery Method Room Air Narrative Exam Narrative: pleasant sitting up in bed talking with Const General: cooperative, healthy appearing and comfortable Orientation: alert, awake and oriented x3 Eyes General: appearance normal, both eyes and all related structures Alignment and Position: alignment normal Neck Neck: normal visual inspection Chest Chest: localized rib tenderness with anteroposterior compression (anterior L chest with localized area TTP at L costosternal junction) Resp Effort & Inspection: normal respiratory effort Auscultation: clear to auscultation bilaterally Cardio Palpation: normal PMI Rate: regular rate Rhythm: regular rhythm and abnormal rhythm Heart Sounds: S1 normal and S2 normal Pulses: dorsalis pedis present and normal peripheral pulses GI Inspection: normal to inspection Palpation: soft Percussion: normal to percussion Auscultation: normal bowel sounds Skin General: no rashes or lesions noted Neuro General: patient alert, patient awake and patient oriented x3 Cognition: normal cognition Speech: speech normal Extrem General: normal to inspection, full ROM and capillary refill normal Psych Appearance: grossly normal Mental Status: mental status grossly normal Speech and Movement: speech and movement normal Mood: congruent mood Affect: normal affect Attitude: cooperative Thought Process: normal Thought Content: normal Judgment: judgment good Objective Labs Result Diagrams: 02/11/21 09:23 02/11/21 09:23 Labs: Laboratory Results - last 24 hr 02/11/21 02/11/21 02/11/21 09:20 09:23 09:23 WBC 5.6 RBC 4.75 Hgb 14.3 Hct 43.8 MCV 92.2 MCH 30.0 MCHC 32.6 RDW 13.4 Plt Count 283 Neut % (Auto) 50.1 Lymph % (Auto) 37.1 [place] % (Auto) 8.7 Eos % (Auto) 3.1 Baso % (Auto) 1.0 Neut # (Auto) 2800 Lymph # (Auto) 2100 [place] # (Auto) 500 Eos # (Auto) 200 Baso # (Auto) 100 PT 11.6 INR 1.0 APTT 32 D-Dimer < 200 Sodium Potassium Chloride Carbon Dioxide BUN Creatinine Estimated GFR BUN/Creatinine Ratio Glucose Calcium Total Bilirubin AST ALT Alkaline Phosphatase Total Creatine Kinase CK-MB (CK-2) CK-MB (CK-2) Rel Index Troponin I NT-Pro-B Natriuret Pep Total Protein Albumin Globulin Albumin/Globulin Ratio Lipase SARS-CoV-2 (PCR) Negative 02/11/21 02/11/21 09:23 11:58 WBC RBC Hgb Hct MCV MCH MCHC RDW Plt Count Neut % (Auto) Lymph % (Auto) [place] % (Auto) Eos % (Auto) Baso % (Auto) Neut # (Auto) Lymph # (Auto) [place] # (Auto) Eos # (Auto) Baso # (Auto) PT INR APTT D-Dimer Sodium 140 Potassium 4.5 Chloride 108 H Carbon Dioxide 25 BUN 15 Creatinine 0.60 Estimated GFR > 60.0 BUN/Creatinine Ratio 25.0 H Glucose 110 H Calcium 9.3 Total Bilirubin 0.5 AST 26 ALT 22 Alkaline Phosphatase 70 Total Creatine Kinase 88 CK-MB (CK-2) TNP CK-MB (CK-2) Rel Index TNP Troponin I < 0.012 < 0.012 NT-Pro-B Natriuret Pep 42 Total Protein 7.0 Albumin 4.2 Globulin 2.8 Albumin/Globulin Ratio 1.5 Lipase 66 SARS-CoV-2 (PCR) Assessment & Plan Assessment & Plan narrative: #chest pain ACS ruleout trending trops, EKG in am, get echo, ASA 81 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 #polyuria odd bit of history; checking UA code status: full MDM: Cezar [phone] DVT: SCDs and lovenox PCP: Long diet: heart healthy
[2021-02-11] MEDS: NITROGLYCERIN OINT 1 INCH/GM OINT...G. 1.5 INCH TOP (17:21)
[2021-02-11 18:15] LABS: Troponin I < 0.012 ng/mL (0.01-0.034)
[2021-02-11] MEDS: ACYCLOVIR 400 MG TABLET PO (21:02)
[2021-02-11] MEDS: dilTIAZem CD 120 MG CAP PO (21:02)
[2021-02-11] MEDS: ACETAMINOPHEN 325 MG TABLET 650 MG PO (21:04)
[2021-02-12 00:13] LABS: Troponin I < 0.012 ng/mL (0.01-0.034)
[2021-02-12 00:30] VITALS: BP 143/79; PULSE 77; RESP 12; TEMP 36.8; O2SAT 96
[2021-02-12 02:10] LABS: Bacteria Urine None Seen; RBC Urine None Seen (0-5/HPF)
[2021-02-12] MEDS: ACETAMINOPHEN 325 MG TABLET 650 MG PO ×2 (02:10→08:09)
[2021-02-12 02:12] LABS: Appearance Urine UA CLEAR; Bilirubin Urine UA NEGATIVE (NEGATIVE); Color Urine UA YELLOW; Glucose Urine UA NEGATIVE (Negative); Ketones Urine UA NEGATIVE (NEGATIVE); Leukocyte Esterase Urine UA NEGATIVE (NEGATIVE); Nitrite Urine UA NEGATIVE (Negative); Occult Blood Urine UA NEGATIVE (Negative); Protein Urine UA NEGATIVE (Negative); Specific Gravity Urine UA >=1.030 (1.000-1.035); Urobilinogen Urine UA 0.2 E.U./dL (0.2)
[2021-02-12 02:16] LABS: pH Urine UA 5.5 (4.5-8.0)
[2021-02-12 02:28] LABS: Squamous Epithelial Cell Urine 1-5 /HPF (0-5/HPF); WBC Urine 1-5/HPF (0-5/HPF)
[2021-02-12 02:29] LABS: Culture Indicated Urine Cult Not Indicated
[2021-02-12 03:45] VITALS: BP 133/84; PULSE 73; RESP 14; TEMP 36.3; O2SAT 98
[2021-02-12 07:35] VITALS: O2SAT 99
[2021-02-12 07:52] VITALS: BP 144/77; PULSE 68; RESP 17; TEMP 36.4; O2SAT 97
[2021-02-12] MEDS: ASPIRIN EC 81 MG TABLET PO (08:09)
[2021-02-12] MEDS: ENOXAPARIN 40 MG/0.4 ML SYRINGE SUBCUT (08:09)
[2021-02-12 08:13] LABS: BUN Creatinine Ratio 28.3 (6-22); Blood Urea Nitrogen 15 mg/dL (7-17); Calcium 9.7 mg/dL (8.4-10.2); Carbon Dioxide 26 mmol/L (22-32); Chloride 107 mmol/L (98-107); Estimated Glomerular Filt Rate > 60.0 mL/min (>60); Glucose 110 mg/dL (70-100); HEMOLYSIS 20 (0-50); Potassium 4.3 mmol/L (3.4-5.1); Sodium 138 mmol/L (137-145)
[2021-02-12 08:22] LABS: NT-proBNP (BNP-Adult 18+) 43 pg/mL (<125)
--- NOTE | 2021-02-12 09:15 | CM.DANOTE ---
DCP: Case received, EMR reviewed and met with patient. Introduced self and role. Was able to obtain information from patient regarding her baseline activity level prior to hospitalization. DCP assessment completed with information currently available. Patient is a 56 year old female who admitted yesterday afternoon to the care of the hospitalist team. PCP: Dr. Alves. Payer: confirmed: [facility]. Patient came to the hospital via private vehicle secondary to having chest pain. She was having sternal chest pain radiating to her left ear. Patient is under the care of a automotive repair technician, Dr. Quinones. She has history of atrial fibrillation as well. She is here for a cardiac work up. Met with patient in her room. She is alert and oriented, pleasant. She resides in [place], and recently her life partner, Cezar Mccain. 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 P: DCP to continue to follow. Patient should be able to go home when she is medically stable. Namita Adan, OLIVIA/Finance Professional
--- NOTE | 2021-02-12 09:34 | ED.CHESTPAIN ---
HPI - Chest Pain General Source: patient and family () Mode of arrival: Ambulatory Limitations: no limitations Related Data Home Medications Medication Instructions Recorded Confirmed acyclovir 400 mg PO BID 02/11/21 02/11/21 celecoxib 200 mg PO BID PRN 02/11/21 02/11/21 diltiazem HCl [Cartia XT] 120 mg PO BID 02/11/21 02/11/21 flecainide 50 mg PO DAILY PRN 02/11/21 02/11/21 Allergies Allergy/AdvReac Type Severity Reaction Status Date / Time Penicillins Allergy Hives Verified 07/27/20 02:08 albuterol AdvReac Shakiness Verified 07/27/20 02:08 Patient History Medical History (Updated 02/11/21 @ 08:40 by Amy Blake DO) Atrial fibrillation No chronic diseases present Surgical History (Updated 02/11/21 @ 08:38 by Amy Blake DO) History of History of cardiac catheterization History of tonsillectomy Hx of breast implants, bilateral No significant past surgical history Social History household members: spouse Smoking Status: Never smoker Smoking Status: Never smoker alcohol intake frequency: a few times a week Substance Use Type: does not use Exam Initial Vital Signs Initial Vital Signs: Vital Signs Temperature 97.3 F L 02/11/21 08:23 Pulse Rate 68 02/11/21 08:23 Respiratory Rate 20 02/11/21 08:23 Blood Pressure 129/72 02/11/21 08:23 Pulse Oximetry 97 02/11/21 08:23 Course Orders Ordered: Acetaminophen (Acetaminophen 325 Mg Tablet) 650 mg PO Q4HR PRN PRN Reason: Fever/Mild Pain (1-3) Last Admin: 02/12/21 08:09 Dose: 650 mg Documented by: Admin: 02/12/21 02:10 Dose: 650 mg Documented by: Admin: 02/11/21 21:04 Dose: 650 mg Documented by: [facility] Acyclovir (Acyclovir 400 Mg Tablet) 400 mg PO BID TAI Last Admin: 02/12/21 09:39 Dose: 400 mg Documented by: Admin: 02/11/21 21:02 Dose: 400 mg Documented by: KKNOTT Aspirin (Aspirin Ec 81 Mg Tablet) 81 mg PO DAILY [facility] Last Admin: 02/12/21 08:09 Dose: 81 mg Documented by: LARISA Diltiazem HCl (Diltiazem Cd 120 Mg Cap) 120 mg PO BID [facility] Last Admin: 02/12/21 09:39 Dose: 120 mg Documented by: Admin: 02/11/21 21:02 Dose: 120 mg Documented by: [facility] Enoxaparin Sodium (Enoxaparin 40 Mg/0.4 Ml Syringe) 40 mg SUBCUT DAILY [facility] Last Admin: 02/12/21 08:09 Dose: 40 mg Documented by: LARISA Flecainide Acetate (Flecainide 100 Mg Tablet) 50 mg PO DAILY PRN PRN Reason: afib rvr Sodium Chloride (Normal Saline 0.9%) 1,000 mls @ 150 mls/hr IV CONT [facility] Last Infusion: 02/11/21 16:39 Dose: 0 mls/hr Documented by: Infusion: 02/11/21 13:58 Dose: 0 mls/hr Documented by: Admin: 02/11/21 09:09 Dose: 150 mls/hr Documented by: DONAL Morphine Sulfate (Morphine 2 Mg/Ml Inj) 2 mg IV Q5MIN PRN PRN Reason: Chest Pain Naloxone HCl (Naloxone 0.4 Mg/Ml Vial) 0.2 mg IV Q2MIN PRN PRN Reason: Opiate Reversal Nitroglycerin (Nitroglycerin 0.4 Mg Sl Tab) 0.4 mg SL [id number] PRN PRN Reason: chest pain Last Admin: 02/11/21 09:10 Dose: 0.4 mg Documented by: Admin: 02/11/21 09:05 Dose: 0.4 mg Documented by: DONAL Nitroglycerin (Nitroglycerin 0.4 Mg Sl Tab) 0.4 mg SL [id number] PRN PRN Reason: Chest Pain Ondansetron HCl (Ondansetron 4 Mg Odt) 4 mg PO Q8HR PRN PRN Reason: Nausea And Vomiting Sodium Chloride (Sodium Chloride 0.9% Flush) 10 ml IV PRN PRN PRN Reason: Flush Sodium Chloride (Sodium Chloride 0.9% Flush) 10 ml IV BID [facility] Last Admin: 02/12/21 09:42 Dose: 10 ml Documented by: LARISA Discontinued Medications Aspirin (Aspirin 81 Mg Chew Tab) 324 mg PO NOW ONE Stop: 02/11/21 08:32 Last Admin: 02/11/21 09:04 Dose: 324 mg Documented by: DONAL Nitroglycerin (Nitroglycerin Oint 1 Inch/Gm Oint...G.) 1 inch TOP NOW ONE Stop: 02/11/21 09:36 Last Admin: 02/11/21 09:38 Dose: 1 inch Documented by: DONAL Nitroglycerin (Nitroglycerin Oint 1 Inch/Gm Oint...G.) 1.5 inch TOP NOW ONE Stop: 02/11/21 17:01 Last Admin: 02/11/21 17:21 Dose: 1.5 inch Documented by: [facility] MDM - Chest Pain Lab Data Result diagrams: 02/11/21 09:23 02/12/21 07:40 Labs: Lab Results 02/11/21 02/11/21 02/11/21 Range/Units 09:20 09:23 09:23 WBC 5.6 (4.5-11.0) X10^3/uL RBC 4.75 (4.0-5.2) X10^6/uL Hgb 14.3 (12.0-16.0) g/dL Hct 43.8 (36-46) % MCV 92.2 (80-100) fL MCH 30.0 (26-34) PG MCHC 32.6 (30-36) % RDW 13.4 (11.6-14.8) % Plt Count 283 (150-400) X10^3/uL Neut % (Auto) 50.1 (50-75) % Lymph % (Auto) 37.1 (25-40) % [place] % (Auto) 8.7 (3-14) % Eos % (Auto) 3.1 (2-4) % Baso % (Auto) 1.0 (0-2) % Neut # (Auto) 2800 (5036-1686) /uL Lymph # (Auto) 2100 (6528-1144) /uL [place] # (Auto) 500 (0-900) /uL Eos # (Auto) 200 (0-450) /uL Baso # (Auto) 100 (0-100) /uL PT 11.6 (10.1-12.7) SECONDS INR 1.0 (0.9-1.3) APTT 32 (26.4-36.2) SECONDS D-Dimer < 200 (<230) ng/mL Sodium (137-145) mmol/L Potassium (3.4-5.1) mmol/L Chloride (98-107) mmol/L Carbon Dioxide (22-32) mmol/L BUN (7-17) mg/dL Creatinine (0.52-1.04) mg/dL Estimated GFR (>60) mL/min BUN/Creatinine Ratio (6-22) Glucose (70-100) mg/dL Calcium (8.4-10.2) mg/dL Total Bilirubin (0.2-1.3) mg/dL AST (14-36) IU/L ALT (<35) IU/L Alkaline Phosphatase (38-126) U/L Total Creatine Kinase (30-135) U/L CK-MB (CK-2) CK-MB (CK-2) Rel Index Troponin I (0.01-0.034) ng/mL NT-Pro-B Natriuret Pep (<125) pg/mL Total Protein (6.3-8.2) g/dL Albumin (3.5-5.0) g/dL Globulin (1.7-4.1) g/dL Albumin/Globulin Ratio (1.0-2.8) Lipase (23-300) U/L SARS-CoV-2 (PCR) Negative (Negative) 02/11/21 02/11/21 Range/Units 09:23 11:58 WBC (4.5-11.0) X10^3/uL RBC (4.0-5.2) X10^6/uL Hgb (12.0-16.0) g/dL Hct (36-46) % MCV (80-100) fL MCH (26-34) PG MCHC (30-36) % RDW (11.6-14.8) % Plt Count (150-400) X10^3/uL Neut % (Auto) (50-75) % Lymph % (Auto) (25-40) % [place] % (Auto) (3-14) % Eos % (Auto) (2-4) % Baso % (Auto) (0-2) % Neut # (Auto) (6645-4729) /uL Lymph # (Auto) (4897-1157) /uL [place] # (Auto) (0-900) /uL Eos # (Auto) (0-450) /uL Baso # (Auto) (0-100) /uL PT (10.1-12.7) SECONDS INR (0.9-1.3) APTT (26.4-36.2) SECONDS D-Dimer (<230) ng/mL Sodium 140 (137-145) mmol/L Potassium 4.5 (3.4-5.1) mmol/L Chloride 108 H (98-107) mmol/L Carbon Dioxide 25 (22-32) mmol/L BUN 15 (7-17) mg/dL Creatinine 0.60 (0.52-1.04) mg/dL Estimated GFR > 60.0 (>60) mL/min BUN/Creatinine Ratio 25.0 H (6-22) Glucose 110 H (70-100) mg/dL Calcium 9.3 (8.4-10.2) mg/dL Total Bilirubin 0.5 (0.2-1.3) mg/dL AST 26 (14-36) IU/L ALT 22 (<35) IU/L Alkaline Phosphatase 70 (38-126) U/L Total Creatine Kinase 88 (30-135) U/L CK-MB (CK-2) TNP CK-MB (CK-2) Rel Index TNP Troponin I < 0.012 < 0.012 (0.01-0.034) ng/mL NT-Pro-B Natriuret Pep 42 (<125) pg/mL Total Protein 7.0 (6.3-8.2) g/dL Albumin 4.2 (3.5-5.0) g/dL Globulin 2.8 (1.7-4.1) g/dL Albumin/Globulin Ratio 1.5 (1.0-2.8) Lipase 66 (23-300) U/L SARS-CoV-2 (PCR) (Negative) Discharge Plan Departure Patient Disposition: Admitted as Observation Clinical Impression: Atypical chest pain
[2021-02-12] MEDS: ACYCLOVIR 400 MG TABLET PO (09:39)
[2021-02-12] MEDS: dilTIAZem CD 120 MG CAP PO (09:39)
[2021-02-12] MEDS: SODIUM CHLORIDE 0.9% FLUSH 10 ML IV (09:42)
--- NOTE | 2021-02-12 10:42 | PM.DS.1 ---
History of Present Illness History of Present Illness Chief complaint: chest pain Narrative: chief complaint: chest pain Pt presents via ED for sudden onset crushing sternal chest pain yesterday radiating up to her L ear. She reports yesterday was pretty regular except for she did notice she was peeing a lot more than usual and she felt lightheaded at her passport photo but did not fall. Chest pain occurred yesterday afternoon while she was just sitting around at home. She is a cardiology pt of Dr Cheng 2\2 hx of rate-controlled afib not on anticoagulation. She takes a daily diltiazem and has a prn flecainide which she uses perhaps monthly but which had no effect on her chest pain yesterday. Initial workup here including troponin and CTA unrevealing however pt's chest pain responds beautifully to nitro tabs and paste. Pt reports she is not really under any huge stress lately, she got last week in a small ceremony, Cezar ([id number]) at bedside. Appetite is good, slept ok last night, peeing normal amount today she thinks. Sees Dr. Cheng who per ED recommends serial trops and echo then stress test as outpt if all wnl. Apart from HSV and afib she is in generally good health, reports menopause for the last five years. Discharge Providers Provider Date of admission: 02/11/21 15:09 Discharge Date: 02/12/21 Primary care physician: Jesica Alves MD Discharge provider: Robert Morel MD Summary Hospital Course Discharge Diagnosis: chest pain ACS ruleout Hospital Course: Ms Zazueta did well and her chest pain improved a lot. It did respond to nitro paste and she got tylenol for nitro headache. Troponins remained within normal limits, she was able to eat and sleep ok and continued home meds. Short run of afib noted on monitor overnight otherwise wnl. Status at Discharge Cognitive/behavioral status at discharge: oriented Functional status at discharge: independent ambulation Overall status at discharge: patient is back to baseline Time Spent with Patient Time spent: Less than 30 minutes Exam Vital Signs (past 8 hours): - 02/12/21 03:45 02/12/21 07:52 Temperature 97.3 F L 97.6 F Pulse Rate 73 68 Respiratory Rate 14 17 Blood Pressure 133/84 144/77 H Pulse Oximetry 98 97 Oxygen Delivery Method Room Air Oxygen Flow Rate 0 Narrative Exam Narrative: pleasant sitting with alert Const General: cooperative, healthy appearing and comfortable HENMT Head: normal to inspection Ears: hearing grossly normal bilaterally Nose: external nose normal Eyes General: appearance normal, both eyes and all related structures Alignment and Position: alignment normal Chest Chest: localized rib tenderness with anteroposterior compression (as noted in HPI, localized tenderness anterior L sternocostal ) Resp Effort & Inspection: normal respiratory effort Auscultation: clear to auscultation bilaterally Cardio Palpation: normal PMI Rate: regular rate Rhythm: regular rhythm Heart Sounds: S1 normal and S2 normal GI Inspection: normal to inspection Palpation: soft Percussion: normal to percussion Auscultation: normal bowel sounds Skin General: no rashes or lesions noted Neuro General: patient alert, patient awake and patient oriented x3 Extrem General: normal to inspection and full ROM Psych Appearance: grossly normal Mental Status: mental status grossly normal Speech and Movement: speech and movement normal Mood: congruent mood Affect: normal affect Objective Labs Result Diagrams: 02/11/21 09:23 02/12/21 07:40 Labs: Laboratory Results - last 24 hr 02/11/21 02/11/21 02/11/21 11:58 17:32 23:45 Sodium Potassium Chloride Carbon Dioxide BUN Creatinine Estimated GFR BUN/Creatinine Ratio Glucose Calcium Troponin I < 0.012 < 0.012 < 0.012 NT-Pro-B Natriuret Pep Urine Color Urine Appearance Urine pH Ur Specific [place] Urine Protein Urine Glucose (UA) Urine Ketones Urine Occult Blood Urine Nitrate Urine Bilirubin Urine Urobilinogen Ur Leukocyte Esterase Urine RBC Urine WBC Ur Squamous Epith Cells Urine Bacteria Ur Culture Indicated? 02/12/21 02/12/21 02:09 07:40 Sodium 138 Potassium 4.3 Chloride 107 Carbon Dioxide 26 BUN 15 Creatinine 0.53 Estimated GFR > 60.0 BUN/Creatinine Ratio 28.3 H Glucose 110 H Calcium 9.7 Troponin I NT-Pro-B Natriuret Pep 43 Urine Color Yellow Urine Appearance Clear Urine pH 5.5 Ur Specific [place] >=1.030 H Urine Protein Negative Urine Glucose (UA) Negative Urine Ketones Negative Urine Occult Blood Negative Urine Nitrate Negative Urine Bilirubin Negative Urine Urobilinogen 0.2 Ur Leukocyte Esterase Negative Urine RBC None seen Urine WBC 1-5/hpf Ur Squamous Epith Cells 1-5 /hpf Urine Bacteria None seen Ur Culture Indicated? Cult not indicated PFSH Medical History (Updated 02/11/21 @ 08:40 by Amy Blake DO) Atrial fibrillation No chronic diseases present Surgical History (Updated 02/11/21 @ 08:38 by Amy Blake DO) History of History of cardiac catheterization History of tonsillectomy Hx of breast implants, bilateral No significant past surgical history Social History household members: spouse Smoking Status: Never smoker Discharge Assessment & Plan Assessment and Plan Plan of Treatment: #chest pain ACS ruleout trops trended wnl, echo wnl, chest pain resolved. F/u with stress test as outpt. #atrial fibrillation, rate controlled continue home diltiazem. Short afib run noted, pt may need Zio patch as outpt to confirm good rhythm control. #polyuria UA wnl. dispo: home to f/u with Dr. Alves and cardiology for stress test. code status: full MDM: Cezar [id number] DVT: SCDs and lovenox PCP: Long diet: heart healthy Discharge Plan Discharge Plan Provider Discharge Comment: pending benign echo result. to f/u for stress test outpt and f/u with Dr. Alves Discharge orders & Medications Discharge Orders: Discharge (Order); Ordered 02/12/21 Ordered By: Robert Morel Prescriptions: Continued celecoxib 200 mg capsule 200 mg PO BID PRN (Reason: Pain (Scale Score 1-3)) RF: 0 acyclovir 400 mg tablet 400 mg PO BID RF: 0 flecainide 50 mg tablet 50 mg PO DAILY PRN (Reason: afib rvr) RF: 0 diltiazem HCl [Cartia XT] 120 mg capsule,extended release 24hr 120 mg PO BID RF: 0 Follow up/Referrals: Jesica Alves MD [Primary Care Provider] - Visit Report/Discharge Packet Instructions: Echocardiogram, DI for Chest Pain Discharge Data Primary Care Provider: Jesica Alves Attending Provider: Robert Morel VTE Deep Vein Thrombosis/Pulmonary Embolism Present on Admission: No
--- NOTE | 2021-02-12 10:43 | PM.PN.1 ---
Subjective Subjective Date Patient Seen: 02/12/21 Time Patient Seen: 09:43 Interval history: Chief complaint: chest pain Pt reports she feels better today, her chest pain is now just a 1 and is more of a nagging discomfort. Slept and ate breakfast without any problems. Per nursing she did have a short run of afib overnight but she wasn't aware of it. Exam Vital Signs (past 8 hours): - 02/12/21 03:45 02/12/21 07:52 Temperature 97.3 F L 97.6 F Pulse Rate 73 68 Respiratory Rate 14 17 Blood Pressure 133/84 144/77 H Pulse Oximetry 98 97 Oxygen Delivery Method Room Air Oxygen Flow Rate 0 Narrative Exam Narrative: sitting by window watching tiktoks with her Const General: cooperative, healthy appearing, comfortable and well developed HENIL Head: normal to inspection Ears: hearing grossly normal bilaterally Nose: external nose normal Mouth: oral mucosae normal Eyes General: appearance normal, both eyes and all related structures Neck Neck: normal visual inspection, full ROM and No JVD Thyroid: thyroid normal Resp Effort & Inspection: normal respiratory effort Auscultation: clear to auscultation bilaterally Cardio Palpation: normal PMI Rate: regular rate Rhythm: regular rhythm and abnormal rhythm Heart Sounds: S1 normal and S2 normal GI Inspection: normal to inspection Palpation: soft Percussion: normal to percussion Auscultation: normal bowel sounds Skin General: no rashes or lesions noted Extrem General: normal to inspection and full ROM Psych Appearance: grossly normal Mental Status: mental status grossly normal Speech and Movement: speech and movement normal Mood: congruent mood Affect: normal affect Attitude: cooperative Thought Process: normal Objective Labs Result Diagrams: 02/11/21 09:23 02/12/21 07:40 Labs: Laboratory Results - last 24 hr 02/11/21 02/11/21 02/11/21 11:58 17:32 23:45 Sodium Potassium Chloride Carbon Dioxide BUN Creatinine Estimated GFR BUN/Creatinine Ratio Glucose Calcium Troponin I < 0.012 < 0.012 < 0.012 NT-Pro-B Natriuret Pep Urine Color Urine Appearance Urine pH Ur Specific [place] Urine Protein Urine Glucose (UA) Urine Ketones Urine Occult Blood Urine Nitrate Urine Bilirubin Urine Urobilinogen Ur Leukocyte Esterase Urine RBC Urine WBC Ur Squamous Epith Cells Urine Bacteria Ur Culture Indicated? 02/12/21 02/12/21 02:09 07:40 Sodium 138 Potassium 4.3 Chloride 107 Carbon Dioxide 26 BUN 15 Creatinine 0.53 Estimated GFR > 60.0 BUN/Creatinine Ratio 28.3 H Glucose 110 H Calcium 9.7 Troponin I NT-Pro-B Natriuret Pep 43 Urine Color Yellow Urine Appearance Clear Urine pH 5.5 Ur Specific [place] >=1.030 H Urine Protein Negative Urine Glucose (UA) Negative Urine Ketones Negative Urine Occult Blood Negative Urine Nitrate Negative Urine Bilirubin Negative Urine Urobilinogen 0.2 Ur Leukocyte Esterase Negative Urine RBC None seen Urine WBC 1-5/hpf Ur Squamous Epith Cells 1-5 /hpf Urine Bacteria None seen Ur Culture Indicated? Cult not indicated PFSH Medical History (Updated 02/11/21 @ 08:40 by Amy Blake DO) Atrial fibrillation No chronic diseases present Surgical History (Updated 02/11/21 @ 08:38 by Amy Blake DO) History of History of cardiac catheterization History of tonsillectomy Hx of breast implants, bilateral No significant past surgical history Social History household members: spouse Smoking Status: Never smoker Assessment & Plan Assessment & Plan narrative: #chest pain ACS ruleout trops wnl, feeling better, plan is to get echo today then discharge if wnl, then set up for stress test as outpt. prn nitro tabs /paste library monitor #atrial fibrillation, rate controlled continue home diltiazem, flecainide doesn't seem to help her chest pain. Run of afib noted overnight. Normal rhythm this morning. May need Zio patch on dc to see if she needs anticoagulation, defer to cardiology #polyuria resolved, UA wnl code status: full MDM: Cezar [phone] DVT: SCDs and lovenox PCP: Long diet: heart healthy Quality VTE Deep Vein Thrombosis/Pulmonary Embolism Present on Admission: No
[2021-02-12 11:34] VITALS: BP 139/78; PULSE 69; RESP 18; TEMP 36.6; O2SAT 96
--- NOTE | 2021-02-12 15:46 | PC.NURSE ---
Discharge: Pt feels ready to d/c home. Spouse here at time of discharge. Pt has a 1/10 chest pressure which was mid sternal. MD Morel was made aware of same when he came to see pt. This pain has remained unchanged. Also had a headache which resolved with tylenol. Echo report returned and Dr. Morel given results and confirmed pt could d/c home. Pt denies any other concerns. There are no new rx's. Discharge packet given and reviewed. Questions answered. Pt d/c home via auto with spouse.
== END 2021-02-12 15:45 | disposition home or self-care (01) ==
LOC: ED 14:39 → AC 15:10
PROVIDERS: Admitting Provider Family Medicine; Emergency Provider Emergency Medicine; PCP Student in an Organized Health Care Education/Training Program; Referring Provider Emergency Medicine; Visit Provider Family Medicine
DX: R07.9 Chest pain, unspecified (principal); I25.2 Old myocardial infarction; I48.91 Unspecified atrial fibrillation; Z20.822 Contact with and (suspected) exposure to COVID-19
CPT/HCPCS: 36415; 70496; 70498; 71045; 80048; 80053; 81001; 82550; 83690; 83880; 84484; 85025; 85379; 85610; 85730; 87635; 93005; 93010; 93306; 96360; 96361; 96372; 99285; C9803; G0378; J1650

== ENCOUNTER → 2021-02-25 11:50 | Outpatient (CLI) | payer OTHER, SELFPAY ==
[2021-02-11 18:43] VITALS: BMI 28.5
[2021-02-25 12:49] LABS: COVID19 -Nasal RAPID Negative (Negative)
== END ==
PROVIDERS: PCP Student in an Organized Health Care Education/Training Program; Visit Provider Physician Assistant
DX: Z01.812 Encounter for preprocedural laboratory examination (principal); Z20.822 Contact with and (suspected) exposure to COVID-19
CPT/HCPCS: 87635

== ENCOUNTER → 2021-02-27 10:14 | Outpatient (CLI) | payer OTHER, SELFPAY ==
[2021-02-11 18:43] VITALS: BMI 28.5
--- NOTE | 2021-02-28 18:32 | DI.NM.S_ITS ---
DATE OF SERVICE: PROCEDURE: Exercise perfusion study. DATE OF STUDY: February 27, 2021. INDICATIONS: Chest pain with anginal component, paroxysmal atrial fibrillation, hypertension. RADIOPHARMACEUTICAL: 25.7 millicurie technetium-99m Myoview IV was injected at stress and 24.3 millicurie technetium-99m Myoview IV was injected at rest. CARDIAC STRESS: The patient underwent exercise stress test under the supervision of an attending staff. She walked on Pablo protocol for about 6 minutes and 24 seconds. However, second stage was held until the test was discontinued. The patient had baseline blood pressure 140/100. Peak blood pressure was 180/100 mmHg. The patient achieved 91 percent of target heart rate, 7 METs of workload and functional aerobic impairment positive 16 percent. The patient developed 2/10 left-sided chest pressure with radiation to the left ear and shoulder which became 3 on a scale of 1-10 at peak exercise. Baseline rhythm was sinus with some repolarization changes. During stress, there was nonspecific upsloping ST depression in inferolateral leads. The patient developed frequent PACs and PVCs as well as occasional ventricular couplets and ventricular triplets without any obvious sustained ventricular tachycardia or atrial fibrillation. RAW DATA: There is a breast shadow seen. The patient has history of breast implant. GATED STUDY: Resting LV ejection fraction 67 percent and stress LV ejection fraction 75 percent. No obvious wall motion abnormalities. Resting end- diastolic volume 136 mL. TID ratio 0.99 which is within normal limits. Lung/heart ratio 0.32 which is within normal limits. MYOCARDIAL PERFUSION SCAN: Stress supine, resting supine and stress prone images were compared to each other. Stress supine and resting supine images revealed moderate size, moderately decreased perfusion of anterior wall and anterior apex which got completely resolved during prone images, however prone images revealed new inferior apical defect, which was not seen during stress supine and resting supine images. This suggests breast tissue attenuation artifact as well as shifting tissue attenuation artifact. No convincing ischemia or infarction pattern seen. CONCLUSION: I will call this study likely a normal myocardial perfusion study with evidence of breast tissue attenuation artifact as well as some shifting tissue attenuation artifact as stated above. No obvious reversible ischemia. Preserved left ventricular function. The patient has poor exercise tolerance. She was hypertensive to begin with. Functional aerobic impairment positive 16 percent. The patient had chest discomfort with anginal component during exercise with nonspecific ST changes and frequent PACs and PVCs without any sustained ventricular tachycardia. Correlate clinically. Mary Jane Zazueta - LEONARDO/dot/milvia doc#: [id number]/job#: [id number] dd: 02/28/2021 17:38:00 dt: 02/28/2021 18:03:00 DICTATING MD/COPIES TO: Cedric Estrada MD COPIES MNE: BRYAN;
== END ==
PROVIDERS: PCP Student in an Organized Health Care Education/Training Program; Referring Provider Student in an Organized Health Care Education/Training Program; Visit Provider Student in an Organized Health Care Education/Training Program
DX: I24.9 Acute ischemic heart disease, unspecified (principal)
CPT/HCPCS: 78452; 93017; A9502

== ENCOUNTER → 2021-05-26 14:08 | Outpatient (CLI) | payer OTHER, SELFPAY ==
[2021-02-11 18:43] VITALS: BMI 28.5
--- NOTE | 2021-05-26 14:13 | DI.US.S_ITS ---
PROCEDURE: US SOFT TISSUE HEAD AND NECK INDICATIONS: Localized swelling, mass and lump, neck TECHNIQUE: Real-time scanning was performed of the neck region of interest, with image documentation. COMPARISON: , CT, CT ANGIO HEAD AND NECK, 02/11/2021, 12:23. FINDINGS: A small intraparotid lymph node is seen at the patient indicated area of pain, measuring 1 x 0.5 x 1.2 cm with preserved fatty hilum. A nonspecific left level 2 lymph node measures 2 x 0.5 x 1.1 cm, not significantly enlarged by size criteria. A similar intraparotid lymph node is seen in the contralateral right parotid gland. IMPRESSION: A small intraparotid lymph node is seen at the patient indicated area of pain in the left neck, which appear symmetrical compared to the contralateral side. Dictated by: Ramon Krishna M.D. on 05/26/2021 at 16:32 Approved by: Ramon Krishna M.D. on 05/26/2021 at 16:37
== END ==
PROVIDERS: PCP Student in an Organized Health Care Education/Training Program; Referring Provider Student in an Organized Health Care Education/Training Program; Visit Provider Student in an Organized Health Care Education/Training Program
DX: R22.1 Localized swelling, mass and lump, neck (principal)
CPT/HCPCS: 76536

== ENCOUNTER → 2021-06-03 14:04 | Outpatient (CLI) | payer OTHER, SELFPAY ==
[2021-02-11 18:43] VITALS: BMI 28.5
--- NOTE | 2021-06-03 | DI.MG.S_ITS ---
BILATERAL DIGITAL SCREENING MAMMOGRAM 3D/2D WITH CAD WITH AUGMENTATION: 06/03/2021 CLINICAL: Routine screening. Family history of breast cancer. Comparison is made to exams dated: 05/21/2020 mammogram - [facility], 08/09/2017 mammogram, and 04/16/2016 mammogram - [facility]. There are scattered fibroglandular elements in both breasts. Current study was also evaluated with a Computer Aided Detection (CAD) system. Bilateral breast implants are stable and intact. No significant masses, calcifications, or other findings are seen in either breast. There has been no significant interval change. IMPRESSION: NEGATIVE There is no mammographic evidence of malignancy. A 1 year screening mammogram is recommended. This exam was interpreted at Station ID: [id number]. NOTE: For mammograms, a report in lay terms will be sent to the patient. Approximately 15% of breast malignancies will not be visualized mammographically. In the management of a palpable breast mass, a negative mammogram must not discourage biopsy of a clinically suspicious lesion. Electronically Signed By: Rudolph Harrison acr/penrad:06/05/2021 08:09:57 letter sent: Normal Exam ACR BI-RADS Category 1: Negative 3341F
== END ==
PROVIDERS: PCP Student in an Organized Health Care Education/Training Program; Referring Provider Student in an Organized Health Care Education/Training Program; Visit Provider Student in an Organized Health Care Education/Training Program
DX: Z12.31 Encounter for screening mammogram for malignant neoplasm of breast (principal); Z80.3 Family history of malignant neoplasm of breast
CPT/HCPCS: 77063; 77067

== ENCOUNTER → 2022-06-30 10:41 | Outpatient (CLI) | payer OTHER, SELFPAY ==
[2021-02-11 18:43] VITALS: BMI 28.5
--- NOTE | 2022-06-30 | DI.MG.S_ITS ---
BILATERAL DIGITAL SCREENING MAMMOGRAM 3D/2D WITH CAD WITH AUGMENTATION: 06/30/2022 CLINICAL: Routine screening. Family history of breast cancer. Comparison is made to exams dated: 06/03/2021 mammogram, 05/21/2020 mammogram - [facility], and 08/09/2017 mammogram - [facility]. There are scattered areas of fibroglandular density in both breasts (category b / 25%-50% glandular tissue). Current study was also evaluated with a Computer Aided Detection (CAD) system. Bilateral breast implants are stable and intact. No significant masses, calcifications, or other findings are seen in either breast. There has been no significant interval change. IMPRESSION: NEGATIVE There is no mammographic evidence of malignancy. A 1 year screening mammogram is recommended. Based on the Tyrer Cuzick model (a risk assessment model) the patient's lifetime risk is 14.3% and her 10 year risk is 5.0%. According to the ACR, ACS, and NCCN guidelines, an annual breast MRI exam along with mammogram is recommended if the patient's lifetime risk is 20% or greater. This exam was interpreted at Station ID: [id number]. NOTE: For mammograms, a report in lay terms will be sent to the patient. Approximately 15% of breast malignancies will not be visualized mammographically. In the management of a palpable breast mass, a negative mammogram must not discourage biopsy of a clinically suspicious lesion. Electronically Signed By: Rudolph cardona/hudson:07/02/2022 08:52:30 letter sent: Normal Exam ACR BI-RADS Category 1: Negative 3341F
== END ==
PROVIDERS: PCP Family Medicine; Referring Provider Family Medicine; Visit Provider Family Medicine
DX: Z12.31 Encounter for screening mammogram for malignant neoplasm of breast (principal); Z80.3 Family history of malignant neoplasm of breast
CPT/HCPCS: 77063; 77067

== ENCOUNTER → 2023-07-06 12:35 | Outpatient (CLI) | payer OTHER, SELFPAY ==
[2021-02-11 18:43] VITALS: BMI 28.5
--- NOTE | 2023-07-06 | DI.MG.S_ITS ---
BILATERAL DIGITAL SCREENING MAMMOGRAM 3D/2D WITH CAD WITH AUGMENTATION: 07/06/2023 CLINICAL: Routine screening. Family history of breast cancer. Comparison is made to exams dated: 06/30/2022 mammogram, 06/03/2021 mammogram, and 05/21/2020 mammogram - [facility]. There are scattered areas of fibroglandular density in both breasts (category b / 25%-50% glandular tissue). Current study was also evaluated with a Computer Aided Detection (CAD) system. Bilateral breast implants are stable and intact. No significant masses, calcifications, or other findings are seen in either breast. There has been no significant interval change. IMPRESSION: NEGATIVE There is no mammographic evidence of malignancy. A 1 year screening mammogram is recommended. Based on the Tyrer Cuzick model (a risk assessment model) the patient's lifetime risk is 14.1% and her 10 year risk is 5.3%. According to the ACR, ACS, and NCCN guidelines, an annual breast MRI exam along with mammogram is recommended if the patient's lifetime risk is 20% or greater. This exam was interpreted at Station ID: [id number]. NOTE: For mammograms, a report in lay terms will be sent to the patient. Approximately 15% of breast malignancies will not be visualized mammographically. In the management of a palpable breast mass, a negative mammogram must not discourage biopsy of a clinically suspicious lesion. Electronically Signed By: Tyler mccall/hudson:07/06/2023 13:14:02 letter sent: Normal Exam ACR BI-RADS Category 1: Negative 3341F
== END ==
PROVIDERS: PCP Family Medicine; Referring Provider Family Medicine; Visit Provider Family Medicine
DX: Z12.31 Encounter for screening mammogram for malignant neoplasm of breast (principal); Z80.3 Family history of malignant neoplasm of breast
CPT/HCPCS: 77063; 77067

== ENCOUNTER → 2024-07-08 08:55 | Outpatient (CLI) | payer OTHER, SELFPAY ==
[2021-02-11 18:43] VITALS: BMI 28.5
[2024-07-08 10:11] LABS: Add Manual Diff / Slide Review NO; Basophils Absolute Auto 0 /uL (0-100); Basophils Percent Auto 0.4 % (0-2); Eosinophils Absolute Auto 100 /uL (0-450); Eosinophils Percent Auto 1.8 % (2-4); Hematocrit 41.3 % (36-46); Hemoglobin 14.2 g/dL (12.0-16.0); Lymphocytes Absolute Auto 1400 /uL (1100-4500); Lymphocytes Percent Auto 22.1 % (25-40); Mean Corpuscular HGB Conc 34.2 % (30-36); Mean Corpuscular Hemoglobin 30.9 PG (26-34); Mean Corpuscular Volume 90.2 fL (80-100); Monocytes Absolute Auto 500 /uL (0-900); Neutrophils Absolute Auto 4400 /uL (1500-7000); Neutrophils Percent Auto 67.7 % (50-75); Platelet Count 266 X10^3/uL (150-400); Red Blood Cell Count 4.58 X10^6/uL (4.0-5.2); Red Cell Distribution Width 12.6 % (11.6-14.8); White Blood Cell Count 6.4 X10^3/uL (4.5-11.0)
[2024-07-08 10:41] LABS: BUN Creatinine Ratio 34.9 (6-22); Blood Urea Nitrogen 22 mg/dL (7-17); Calcium 9.7 mg/dL (8.4-10.2); Carbon Dioxide 25 mmol/L (22-32); Chloride 106 mmol/L (98-107); Cholesterol 148 mg/dL (140-199); Estimated Glomerular Filt Rate > 60 mL/min (>60); Glucose 97 mg/dL (70-100); HDL Cholesterol 55 mg/dL (40-60); HEMOLYSIS < 15 (0-50); LDL Cholesterol Calculated 78 mg/dL (<100); Potassium 4.6 mmol/L (3.4-5.1); Sodium 138 mmol/L (137-145); Triglycerides 76 mg/dL (35-150)
== END ==
LOC: LAB 08:57
PROVIDERS: PCP Family Medicine; Referring Provider Internal Medicine Cardiovascular Disease; Visit Provider Internal Medicine Cardiovascular Disease
DX: Z00.00 Encounter for general adult medical examination without abnormal findings (principal); I48.0 Paroxysmal atrial fibrillation
CPT/HCPCS: 36415; 80048; 80061; 85025

== ENCOUNTER → 2024-07-11 09:38 | Outpatient (CLI) | payer OTHER, SELFPAY ==
[2021-02-11 18:43] VITALS: BMI 28.5
--- NOTE | 2024-07-11 | DI.MG.S_ITS ---
BILATERAL DIGITAL SCREENING MAMMOGRAM 3D/2D WITH CAD WITH AUGMENTATION: 07/11/2024 CLINICAL: Routine screening. Family history of breast cancer. Comparison is made to exam dated: 07/06/2023 mammogram - [facility]. There are scattered areas of fibroglandular density (category b / 25%-50% glandular tissue). Current study was also evaluated with a Computer Aided Detection (CAD) system. Bilateral breast implants are stable. No significant masses, calcifications, or other findings are seen in either breast. There has been no significant interval change. IMPRESSION: NEGATIVE There is no mammographic evidence of malignancy. A 1 year screening mammogram is recommended. Based on the Tyrer Cuzick model (a risk assessment model) the patient's lifetime risk is 13.8% and her 10 year risk is 5.4%. According to the ACR, ACS, and NCCN guidelines, an annual breast MRI exam along with mammogram is recommended if the patient's lifetime risk is 20% or greater. This exam was interpreted at Station ID: [id number]. NOTE: For mammograms, a report in lay terms will be sent to the patient. Approximately 15% of breast malignancies will not be visualized mammographically. In the management of a palpable breast mass, a negative mammogram must not discourage biopsy of a clinically suspicious lesion. Electronically Signed By: Tyler mccall/hudson:07/13/2024 07:59:29 letter sent: Normal Exam ACR BI-RADS Category 1: Negative
== END ==
PROVIDERS: PCP Family Medicine; Referring Provider Family Medicine; Visit Provider Family Medicine
DX: Z12.31 Encounter for screening mammogram for malignant neoplasm of breast (principal); Z80.3 Family history of malignant neoplasm of breast; Z98.82 Breast implant status
CPT/HCPCS: 77063; 77067

== ENCOUNTER → 2025-08-05 16:32 | Outpatient (CLI) | payer OTHER, SELFPAY ==
[2021-02-11 18:43] VITALS: BMI 28.5
--- NOTE | 2025-08-05 16:33 | DI.MG.S_ITS ---
MM screening mammo implant BI: 08/05/2025. BI-RADS: 2 CLINICAL: 60-year old female for bilateral screening mammogram. Tyrer-Cuzick lifetime risk of 7.2%. No personal or first-degree family history of breast cancer. Current reported family history of breast cancer: maternal grandmother. The patient has bilateral implants. PRIOR EXAMS 07/11/2024, 07/06/2023, 06/30/2022, 06/03/2021, MAMMOGRAPHY TECHNIQUE: 2D and 3D (tomosynthesis) digital mammographic views obtained, with additional images as needed for full coverage. Current study was also evaluated with a Computer Aided Detection (CAD) system. DENSITY B. There are scattered areas of fibroglandular density. IMPLANTS Breast implants present. MAMMOGRAPHY FINDINGS Bilateral: There are no suspicious masses, calcifications, or other findings in the breast. IMPRESSION: * No evidence of malignancy with benign findings. RECOMMENDATIONS Bilateral * Annual screening mammography. OVERALL ASSESSMENT CATEGORY BI-RADS-2: Benign. The [employer] recommends annual screening mammography beginning at age 40 for women with average risk of breast cancer. ELECTRONICALLY SIGNED: Flip Suh M.D. on 08/07/2025 at 05:13:44 PM PT Interpreting Station ID: [id number]
== END ==
PROVIDERS: PCP Family Medicine; Referring Provider Family Medicine; Visit Provider Family Medicine
DX: Z12.31 Encounter for screening mammogram for malignant neoplasm of breast (principal); Z98.82 Breast implant status; Z80.3 Family history of malignant neoplasm of breast
CPT/HCPCS: 77063; 77067